=== PATIENT | female | born 1990 | race Caucasian/White ===

== ENCOUNTER 2020-06-03 13:04 | Outpatient (REF) | payer OTHER, SELFPAY ==
[2020-06-04 11:36] LABS: BV Int Neg Control Negative (Negative); BV Int Pos Control Positive (Positive)
[2020-06-04 12:36] LABS: CT PCR NOT DETECTED (Not Detect.); NG PCR NOT DETECTED (Not Detect.)
== END 2020-06-03 13:05 | disposition home or self-care (01) ==
LOC: HO.LNP 13:04
PROVIDERS: PCP Internal Medicine; Visit Provider Obstetrics & Gynecology
DX: Z11.3 Encounter for screening for infections with a predominantly sexual mode of transmission (principal); N76.0 Acute vaginitis; B96.89 Other specified bacterial agents as the cause of diseases classified elsewhere
CPT/HCPCS: 87480; 87491; 87510; 87591; 87660; 99212

== ENCOUNTER 2020-09-29 14:10 | Outpatient (REF) | payer OTHER, SELFPAY | END 2020-09-29 14:11 | disposition home or self-care (01) | LOC: HO.LNP 14:10 | PROVIDERS: Visit Provider Hospitalist | DX: R30.0 Dysuria (principal) | CPT/HCPCS: 87086 ==

== ENCOUNTER → 2020-10-15 11:54 | Outpatient (BNVA) | payer OTHER, SELFPAY | PROVIDERS: Visit Provider Obstetrics & Gynecology ==

== ENCOUNTER 2020-10-30 09:50 | Outpatient (REF) | payer OTHER, SELFPAY ==
[2020-10-30 16:44] LABS: CT PCR NOT DETECTED (Not Detect.); NG PCR NOT DETECTED (Not Detect.)
[2020-10-31 08:15] LABS: Syphilis Screen Nonreactive (Nonreactive)
[2020-10-31 08:47] LABS: BV Int Neg Control Negative (Negative); BV Int Pos Control Positive (Positive)
[2020-10-31 09:01] LABS: HBc Num1 0.08 S/CO (0.00-0.79); HIV AB/AG Nonreactive (Nonreactive); HIV Num 1 0.11 S/CO (0.00-0.99); Hepatitis B Core Antibody Nonreactive (Nonreactive); ~HepC Num1 0.08 S/CO (0.00-0.79); ~Hepatitis C Antibody Nonreactive (Nonreactive)
== END 2020-10-30 09:51 | disposition home or self-care (01) ==
LOC: HO.LAB 09:50
PROVIDERS: Visit Provider Advanced Practice Midwife
DX: Z01.84 Encounter for antibody response examination (principal); Z11.4 Encounter for screening for human immunodeficiency virus [HIV]; Z11.3 Encounter for screening for infections with a predominantly sexual mode of transmission; Z11.59 Encounter for screening for other viral diseases; R10.2 Pelvic and perineal pain; N89.8 Other specified noninflammatory disorders of vagina; N39.0 Urinary tract infection, site not specified; R82.90 Unspecified abnormal findings in urine; Z20.2 Contact with and (suspected) exposure to infections with a predominantly sexual mode of transmission
CPT/HCPCS: 36415; 86704; 86780; 86803; 87086; 87088; 87186; 87389; 87480; 87491; 87510; 87591; 87660; 99212

== ENCOUNTER 2020-12-17 09:10 | Outpatient (REF) | payer OTHER, SELFPAY ==
[2020-12-20 18:05] LABS: HPV 16 RNA NOT DETECTED (NOT DETECTED); HPV mRNA E6/E7 rflx Detected (Not Detected)
== END 2020-12-17 09:11 | disposition home or self-care (01) ==
LOC: HO.LAB 09:10
PROVIDERS: PCP Internal Medicine; Visit Provider Advanced Practice Midwife
DX: Z01.419 Encounter for gynecological examination (general) (routine) without abnormal findings (principal); R35.0 Frequency of micturition; Z11.51 Encounter for screening for human papillomavirus (HPV)
CPT/HCPCS: 81003; 87086; 87624; 87625; 88142

== ENCOUNTER 2021-03-02 12:08 | Outpatient (REF) | payer OTHER, SELFPAY ==
[2021-03-02 13:45] LABS: Binax Internal Control QC Valid; Binax Lot number: 9864; Binax Now Covid-19 Ag Positive (Negative)
== END 2021-03-02 12:09 | disposition home or self-care (01) ==
LOC: HO.LAB 12:08
PROVIDERS: Visit Provider Internal Medicine
DX: Z20.822 Contact with and (suspected) exposure to COVID-19 (principal)
CPT/HCPCS: 36415; C9803

== ENCOUNTER → 2021-07-29 13:56 | Outpatient (BNVA) | payer OTHER, SELFPAY | PROVIDERS: PCP Internal Medicine; Visit Provider Advanced Practice Midwife | DX: Z31.69 Encounter for other general counseling and advice on procreation (principal) | CPT/HCPCS: 81025; 99212 ==

== ENCOUNTER 2021-09-14 13:34 | Outpatient (REF) | payer OTHER, SELFPAY ==
[2021-09-14 16:34] LABS: MANUAL DIFF FLAG NO
[2021-09-14 16:38] LABS: Basophils Percent Auto 0.3 % (0-2); Eosinophils Absolute Auto 0.1 X10*3/uL (0.0-0.4); Eosinophils Percent Auto 0.6 % (0-4); Hematocrit 40.8 % (37.0-47.0); Hemoglobin 13.6 g/dl (12.0-16.0); Imm Gran Abs Auto 0.03 X10*3/uL (0.00-0.03); Imm Gran Pct Auto 0.3 % (0.0-0.4); Lymphocytes Percent Auto 33.4 % (20-40); Mean Corpuscular HGB Conc 33.3 g/dl (31.0-35.0); Mean Corpuscular Volume 84.1 fL (80.0-98.0); Mean Platelet Volume 9.9 fL (9.4-12.3); Monocytes Absolute Auto 0.4 X10*3/uL (0.1-1.2); Monocytes Percent Auto 4.9 % (2-11); Neutrophils Absolute Auto 5.5 x10*3/uL (2.0-8.3); Neutrophils Percent Auto 60.5 % (45-73); Platelet Count 322 X10*3/uL (160-400); Red Blood Count 4.85 X10*6/uL (4.20-5.50); Red Cell Distribution Width 12.8 % (11.0-16.0)
[2021-09-14 16:47] LABS: Anion Gap 10 (12-20); Blood Urea Nitrogen 10 mg/dL (9-16); Calcium 9.2 mg/dL (8.4-10.2); Carbon Dioxide 29 mmol/L (22-29); Chloride 103 mmol/L (96-108); Estimated Glomerular Filt Rate > 60; Glucose Random 88 mg/dL (60-115); Potassium 3.9 mmol/L (3.3-5.1); Sodium 138 mmol/L (135-145)
== END 2021-09-14 13:35 | disposition home or self-care (01) ==
LOC: HO.HMGCLDS 13:34
PROVIDERS: PCP Internal Medicine; Visit Provider Internal Medicine
DX: Z01.818 Encounter for other preprocedural examination (principal); M20.42 Other hammer toe(s) (acquired), left foot; B35.1 Tinea unguium; M20.41 Other hammer toe(s) (acquired), right foot
CPT/HCPCS: 36415; 80048; 85025

== ENCOUNTER 2021-12-23 10:18 | Outpatient (REF) | payer OTHER, SELFPAY ==
[2021-12-23 13:50] LABS: CT PCR NOT DETECTED (Not Detect.); NG PCR NOT DETECTED (Not Detect.)
[2021-12-24 12:14] LABS: BV Int Neg Control Negative (Negative); BV Int Pos Control Positive (Positive)
[2021-12-29 08:52] LABS: HPV 16 RNA NOT DETECTED (NOT DETECTED); HPV mRNA E6/E7 rflx Detected (Not Detected)
== END 2021-12-23 10:19 | disposition home or self-care (01) ==
LOC: HO.LNP 10:18
PROVIDERS: Visit Provider Advanced Practice Midwife
DX: Z01.419 Encounter for gynecological examination (general) (routine) without abnormal findings (principal); Z11.51 Encounter for screening for human papillomavirus (HPV); N94.6 Dysmenorrhea, unspecified; Z20.2 Contact with and (suspected) exposure to infections with a predominantly sexual mode of transmission
CPT/HCPCS: 87480; 87491; 87510; 87591; 87624; 87625; 87660; 88142

== ENCOUNTER 2022-01-26 14:30 | Outpatient (REF) | payer OTHER, SELFPAY | END 2022-01-26 14:31 | disposition home or self-care (01) | LOC: HO.LNP 14:30 | PROVIDERS: PCP Internal Medicine; Visit Provider Obstetrics & Gynecology | DX: A63.0 Anogenital (venereal) warts (principal); B97.7 Papillomavirus as the cause of diseases classified elsewhere | CPT/HCPCS: 57454; 88305 ==

== ENCOUNTER → 2022-02-16 13:02 | Outpatient (BNVA) | payer OTHER, SELFPAY | PROVIDERS: PCP Internal Medicine; Visit Provider Obstetrics & Gynecology | DX: Z71.2 Person consulting for explanation of examination or test findings (principal) | CPT/HCPCS: 99212 ==

== ENCOUNTER 2022-05-28 09:43 | Outpatient (REF) | payer OTHER, SELFPAY ==
[2022-05-28 12:48] LABS: Cholesterol 163 mg/dL; Glucose Fasting 91 mg/dL (60-99); HDL Cholesterol 44 mg/dL; LDL Cholesterol Calculated 109 mg/dl; TSH reflex Free T4 0.38 uIU/mL (0.32-4.0); Triglycerides 53 mg/dL; Vitamin D 25-OH Total 19.1 ng/mL (>30)
== END 2022-05-28 09:44 | disposition home or self-care (01) ==
LOC: HO.HMGCLDS 09:43
PROVIDERS: PCP Internal Medicine; Visit Provider Internal Medicine
DX: Z00.01 Encounter for general adult medical examination with abnormal findings (principal); E66.9 Obesity, unspecified; F41.9 Anxiety disorder, unspecified
CPT/HCPCS: 36415; 80061; 82306; 82947; 84443

== ENCOUNTER 2022-06-04 12:55 | Outpatient (REF) | payer OTHER, SELFPAY ==
[2022-06-06 09:38] LABS: BV Int Neg Control Negative (Negative); BV Int Pos Control Positive (Positive)
== END 2022-06-04 12:56 | disposition home or self-care (01) ==
LOC: HO.LNP 12:55
PROVIDERS: Visit Provider Internal Medicine
DX: N76.0 Acute vaginitis (principal); B96.89 Other specified bacterial agents as the cause of diseases classified elsewhere
CPT/HCPCS: 87480; 87510; 87660

== ENCOUNTER 2022-07-16 08:47 | Outpatient (REF) | payer OTHER, SELFPAY ==
[2022-07-16 15:17] LABS: CT PCR NOT DETECTED (Not Detect.); NG PCR NOT DETECTED (Not Detect.)
[2022-07-17 12:06] LABS: BV Int Neg Control Negative (Negative); BV Int Pos Control Positive (Positive)
== END 2022-07-16 08:48 | disposition home or self-care (01) ==
LOC: HO.LNP 08:47
PROVIDERS: PCP Internal Medicine; Visit Provider Advanced Practice Midwife
DX: N76.0 Acute vaginitis (principal); B96.89 Other specified bacterial agents as the cause of diseases classified elsewhere; Z20.2 Contact with and (suspected) exposure to infections with a predominantly sexual mode of transmission; S30.814A Abrasion of vagina and vulva, initial encounter
CPT/HCPCS: 0353U; 87480; 87510; 87660; 99212

== ENCOUNTER 2022-11-29 09:27 | Outpatient (AMB) | payer OTHER, SELFPAY ==
[2022-11-29 10:35] VITALS: BP 130/80; PULSE 85; TEMP 36.7; O2SAT 98; BMI 30.7
--- NOTE | 2022-11-29 10:35 | MHC.OFFWIV ---
Intake Vital Signs 11/29/22 10:35 Height 5 ft 6 in Weight 86.183 kg BMI 30.7 BP 130/80 Blood Pressure Location Rt brachial Position Sitting Pulse 85 Pulse Source Pulse Oximeter Temp 98.0 F Temp Source Temporal Artery Scan Pulse Oximetry (%) 98 Intake Visit Reasons: EP Severe lower back pain [phone] Intake Note: pt is here for c.o severe lower back pain, one week late on period, requesting blood test Patient Tobacco Use Status: Never used Tobacco Allergies No Known Allergies Allergy (Verified 11/29/22 10:36) Do you need a note to return to daycare/school/sports/work: Yes HPI EP Severe lower back pain [phone] HPI Details Patient presents with low back pain that is worse at night. She notes similar symptoms in the past secondary to scoliosis and increased activity. She denies falls or acute trauma acute incident starting pain. She also notes her LMP was 10/02/2022. She has previously had very regular periods every 28 days. She notes pitt air test was negative. She denies pelvic pain, discharge, rash lesions or bleeding. [facility] Medical History Abnormal Pap smear of cervix Anxiety disorder Bacterial vaginosis Hammertoes of both feet HPV in female Obesity (BMI 30-39.9) Onychomycosis Vaginal discharge Surgical History History of section History of tonsillectomy Family History Father Unknown family medical history Mother No problems noted. Maternal Grandmother Glaucoma Maternal Grandfather CVD (cardiovascular disease) Myocardial infarction Paternal Grandfather Unknown family medical history Paternal Grandmother Unknown family medical history Maternal Aunt Diabetes mellitus Brother No problems noted. Sister No problems noted. Daughter No problems noted. Daughter No problems noted. Maternal Uncle Substance use disorder Maternal Uncle Substance use disorder Maternal Uncle Substance use disorder Social History Housing: Apartment Alcohol intake: never Patient Tobacco Use Status: Never used Tobacco e-Cigarette/Vaping Use: Never Used Current occupational status: employed Sexual orientation: Straight/Heterosexual Gender identity: Female Cognitive needs: No Hearing needs: No Vision needs: No Female Reproductive History Menstrual Age of Menarche: 9 Review of Systems Const Reports as per HPI and Reports no additional complaints Card Reports as per HPI and Reports no additional complaints Resp Reports as per HPI and Reports no additional complaints GI Reports as per HPI and Reports no additional complaints Reports as per HPI Musc Reports no additional complaints and Reports as per HPI Skin/Breast Denies lesions Physical Exam Vital Signs: Last Vital Signs Temp 98.0 F 11/29/22 10:35 Pulse 85 11/29/22 10:35 BP 130/80 11/29/22 10:35 Pulse Ox 98 11/29/22 10:35 BMI result Body Mass Index 30.7 Const General: cooperative, comfortable and no acute distress Orientation/consciousness: patient oriented x3 Resp Effort & Inspection: normal respiratory effort Auscultation: clear to auscultation bilaterally Cardio Rate: regular rate Rhythm: regular rhythm Heart sounds: S1 normal heart sound present and S2 normal heart sound present General: Yes no CVA tenderness Back/Spine/Pelvis Back: no CVA tenderness, No erythema, No warmth, No sacral edema and No ecchymosis Thoracic/Lumbar Spine: thoracic and lumbar spine normal to inspection, thoraco-lumbar ROM normal and thoraco-lumbar spasm bilaterally (Mild) Neuro Other: Negative straight leg raise bilaterally normal gait General: patient oriented x3 Results AMB Urinalysis, Automated UA Leukoctes 0 Eyad/uL Last Edit by Sriram Quintana CMA on 11/29/22 10:58 UA Nitrite Negative Last Edit by Sriram Quintana CMA on 11/29/22 10:58 UA Urobilinogen 0.2 mg/dL Last Edit by Sriram Quintana CMA on 11/29/22 10:58 UA Protein 0 mg/dL Last Edit by Sriram Quintana CMA on 11/29/22 10:58 UA pH 6.0 Last Edit by Sriram Quintana CMA on 11/29/22 10:58 UA Blood 10 Chris/uL Last Edit by Sriram Quintana CMA on 11/29/22 10:58 UA Specific [place] 1.025 Last Edit by Sriram Quintana CMA on 11/29/22 10:58 UA Ketone Negative Last Edit by Sriram Quintana CMA on 11/29/22 10:58 UA Bilirubin 0 mg/dL Last Edit by Sriram Quintana CMA on 11/29/22 10:58 UA Glucose 0 mg/dL Last Edit by Sriram Quintana CMA on 11/29/22 10:58 AMB Test Urine AMB Test Urine Negative Last Edit by Sriram Quintana CMA on 11/29/22 10:59 Assessment & Plan Assessment & Plan (1) Lumbar paraspinal muscle spasm: Code(s): M62.830 - Muscle spasm of back Plan: Treat with q.h.s. Flexeril and self rehab exercises and self-care with heat or ice. Return to clinic if symptoms persist may consider imaging or physical therapy as needed. (2) Amenorrhea: Code(s): N91.2 - Amenorrhea, unspecified Plan: Urine hCG negative in office today. 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 Orders: Orders HCG Quantitative Today M62.830 - Muscle spasm of back, N91.2 - Amenorrhea, unspecified TSH reflex Free T4 Today N91.2 - Amenorrhea, unspecified AMB Urinalysis Automated Today Z13.9 - Encounter for screening, unspecified AMB HCG Urine Test Today Z13.9 - Encounter for screening, unspecified Medications: New cyclobenzaprine 10 mg PO BEDTIME PRN 20 tabs 0RF muscle spasm Coding Level of Care Code Est Pt Level 3 (78669) Diagnoses Lumbar paraspinal muscle spasm M62.830 Amenorrhea N91.2
== END 2022-11-29 10:59 | disposition home or self-care (01) ==
PROVIDERS: PCP Internal Medicine; Visit Provider Physician Assistant
DX: M62.830 Muscle spasm of back (principal); N91.2 Amenorrhea, unspecified; Z13.9 Encounter for screening, unspecified
CPT/HCPCS: 81003; 81025; 99213

== ENCOUNTER 2022-11-29 11:01 | Outpatient (REF) | payer OTHER, SELFPAY ==
[2022-11-29 14:26] LABS: HCG Quantitative < 2 mIU/mL; TSH reflex Free T4 0.45 uIU/mL (0.32-4.0)
== END 2022-11-29 11:02 | disposition home or self-care (01) ==
LOC: HO.HMGCLDS 11:01
PROVIDERS: PCP Internal Medicine; Visit Provider Physician Assistant
DX: N91.2 Amenorrhea, unspecified (principal); M62.830 Muscle spasm of back
CPT/HCPCS: 36415; 84443; 84702

== ENCOUNTER 2022-12-23 10:40 | Outpatient (AMB) | payer OTHER, SELFPAY ==
--- NOTE | 2022-12-23 10:47 | A.OFFVIS_ITS ---
Intake Vital Signs 12/23/22 10:51 Height 5 ft 6 in Weight 192 lb 2 oz BMI 31.0 BP 112/78 Blood Pressure Location Lt brachial Position Sitting Pulse 89 Pulse Source Pulse Oximeter Temp 97.1 F Temp Source Temporal Artery Scan Pulse Oximetry (%) 99 Oxygen Delivery Method Room Air Intake Visit Reasons: EP Migraine, Dizzy, Nausea Intake Note: Pt presents to the office today for c/o migraines,dizziness, and nausea. Pt states these symptoms started months ago but has gotten worse within the past two weeks. Pt states she did go to the hospital for this about two weeks ago at [facility]. Pt states the doctor told her it was tension headaches. Pt states that no OTC medications are helping. Allergies No Known Allergies Allergy (Verified 12/23/22 10:47) HPI HPI Comments History of Present Illness Details The patient presents to urgent care for evaluation of ongoing headaches. She reports that she has had foggy headed sensation. She states that she has been dealing with headaches for many months. Over the past month it has increased in intensity. She does admit to increased stress with 2 jobs and going to school. She went to the ER about 2 weeks ago and was told it was tension headache and given muscle relaxer. She has not been using this as it was not helpful. She did take some of her mother's migraine medication and found to be helpful though she does not know which medication it was. In addition, patient reports that she has 2 brothers who from brain tumors and this is making her very concerned about her current symptoms. She reports they are tumors started with symptoms similar to hers. No visual changes. No nausea vomiting. [facility] Medical History (Updated 12/23/22 @ 11:29 by Radha Arnett DO) Persistent headaches Vaginal discharge Anxiety disorder HPV in female Abnormal Pap smear of cervix Onychomycosis Hammertoes of both feet Obesity (BMI 30-39.9) Bacterial vaginosis Surgical History History of section History of tonsillectomy Family History Father Unknown family medical history Mother No problems noted. Maternal Grandmother Glaucoma Maternal Grandfather CVD (cardiovascular disease) Myocardial infarction Paternal Grandfather Unknown family medical history Paternal Grandmother Unknown family medical history Maternal Aunt Diabetes mellitus Brother No problems noted. Sister No problems noted. Daughter No problems noted. Daughter No problems noted. Maternal Uncle Substance use disorder Maternal Uncle Substance use disorder Maternal Uncle Substance use disorder Social History (Updated 12/23/22 @ 10:53 by Meme Mancia MA) Housing: Apartment Alcohol intake: never Patient Tobacco Use Status: Never used Tobacco e-Cigarette/Vaping Use: Never Used Substance Use Type: Marijuana Current occupational status: employed Sexual orientation: Straight/Heterosexual Gender identity: Female Cognitive needs: No Hearing needs: No Vision needs: No Female Reproductive History Menstrual Age of Menarche: 9 Physical Exam Vital Signs: Last Vital Signs Temp 97.1 F 12/23/22 10:51 Pulse 89 12/23/22 10:51 BP 112/78 12/23/22 10:51 Pulse Ox 99 12/23/22 10:51 Oxygen Delivery Method Room Air 12/23/22 10:51 BMI result Body Mass Index 31.0 Const General: healthy appearing and no acute distress Orientation/consciousness: patient oriented x3 Eyes Corneas: corneas normal Pupils: Equal, round and reactive pupils present Chest Chest palpation & inspection: no tenderness Resp Effort & Inspection: normal respiratory effort and able to speak in complete sentences GI Palpation (GI): nontender Neuro General: patient oriented x3 Cranial nerves: Yes Equal, round and reactive pupils present Psych Appearance: grossly normal Attitude: cooperative Assessment & Plan Assessment & Plan (1) Persistent headaches: Code(s): R51.9 - Headache, unspecified Plan The patient was advised to use ibuprofen as needed for headache. Will order CT scan to further evaluate and rule out intracranial pathology. Patient was reassured and will follow-up with her PCP. Orders: Orders CT head/brain wo/w IV con Today R51.9 - Headache, unspecified Coding Level of Care Code Est Pt Level 3 (23206) Diagnoses Persistent headaches R51.9
[2022-12-23 10:51] VITALS: BP 112/78; PULSE 89; TEMP 36.2; O2SAT 99; BMI 31.0
== END 2022-12-23 11:39 | disposition home or self-care (01) ==
PROVIDERS: PCP Internal Medicine; Visit Provider Emergency Medicine
DX: R51.9 Headache, unspecified (principal)
CPT/HCPCS: 99213

== ENCOUNTER 2023-02-01 07:48 | Outpatient (REF) | payer OTHER, SELFPAY ==
--- NOTE | ~2023-02-01 | CT_ITS ---
EXAMINATION: CT HEAD WITH/WITHOUT CONTRAST CLINICAL INFORMATION: Headache COMPARISON: None available. TECHNIQUE: Contiguous axial imaging was performed from the skull base to vertex before and after the administration of 85 mL of Omnipaque [address] examination was performed using dose optimization techniques as appropriate, variously including the following: *Automated exposure control *Adjustment of mA and/or kV according to patient size (this includes techniques or standardized protocols for targeted exams where dose is matched to indication/reason for exam; i.e. extremities or head) *Use of iterative reconstruction technique DLP: 1448 mGy-cm FINDINGS: No acute osseous or soft tissue abnormality. The mastoid air cells and visualized portions of the paranasal sinuses are well aerated. No abnormal intracranial enhancement There is no evidence of acute intracranial hemorrhage or territorial infarction. No abnormal mass effect or midline shift is seen. Varghese to white matter differentiation is well preserved. No extra-axial fluid collections are identified. No hydrocephalus. No significant volume loss. There is no abnormal attenuation within the brain parenchyma. CT/CT head/brain wo/w IV con IMPRESSION: Normal exam
[2023-02-01] MEDS: iohexoL 350 MG/ML 100 ML INFUS..BTL IV (08:25)
== END 2023-02-01 07:49 | disposition home or self-care (01) ==
LOC: HO.CT 07:48
PROVIDERS: PCP Internal Medicine; Visit Provider Emergency Medicine
DX: R51.9 Headache, unspecified (principal)
CPT/HCPCS: 70470; Q9967

== ENCOUNTER 2023-02-14 11:44 | Outpatient (REF) | payer OTHER, SELFPAY ==
[2023-02-15 06:04] LABS: CT PCR NOT DETECTED (Not Detect.); NG PCR NOT DETECTED (Not Detect.)
[2023-02-19 06:19] LABS: HPV 16 RNA NOT DETECTED (NOT DETECTED); HPV mRNA E6/E7 rflx Detected (Not Detected)
== END 2023-02-14 11:45 | disposition home or self-care (01) ==
LOC: HO.LNP 11:44
PROVIDERS: PCP Internal Medicine; Visit Provider Obstetrics & Gynecology
DX: Z01.419 Encounter for gynecological examination (general) (routine) without abnormal findings (principal); N92.6 Irregular menstruation, unspecified; N93.9 Abnormal uterine and vaginal bleeding, unspecified
CPT/HCPCS: 0353U; 81025; 87624; 87625; 88142; 99395

== ENCOUNTER 2023-02-14 11:44 | Outpatient (AMB) | payer OTHER, SELFPAY ==
[2023-02-14 11:48] VITALS: BP 120/74; BMI 31.0
--- NOTE | 2023-02-14 11:48 | A.OFFVIS_ITS ---
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 Complaining of irregular menstrual cycle associated with passage of blood clots and pelvic cramping last 4 months Last Pap/HPV was in 12/19 was negative/HPV positive, colpo biopsy/ECC were negative. Co testing in 12/18 was negative/HPV positive [facility] Medical History Persistent headaches Vaginal discharge Anxiety disorder HPV in female Onychomycosis Hammertoes of both feet Obesity (BMI 30-39.9) Bacterial vaginosis Surgical History History of section History of tonsillectomy Family History Father Unknown family medical history Mother No problems noted. Maternal Grandmother Glaucoma Maternal Grandfather CVD (cardiovascular disease) Myocardial infarction Paternal Grandfather Unknown family medical history Paternal Grandmother Unknown family medical history Maternal Aunt Diabetes mellitus Brother No problems noted. Sister No problems noted. Daughter No problems noted. Daughter No problems noted. Maternal Uncle Substance use disorder Maternal Uncle Substance use disorder Maternal Uncle Substance use disorder Social History Housing: Apartment Alcohol intake: never Patient Tobacco Use Status: Never used Tobacco e-Cigarette/Vaping Use: Never Used Substance Use Type: Marijuana Current occupational status: employed Sexual orientation: Straight/Heterosexual Gender identity: Female Cognitive needs: No Hearing needs: No Vision needs: No Female Reproductive History Menstrual Age of Menarche: 9 control method: none Total pregnancies: 4 Full term: 2 Number of Living Children: 2 Ab induced: 2 Date of last pap smear: 12/23/21 History of abnormal pap smear: Yes (HPV +) Review of Systems Const All systems reviewed & are unremarkable except as noted in HPI and below Card Reports as per HPI Resp Reports as per HPI GI Reports as per HPI and Reports no additional complaints Reports as per HPI Physical Exam Vital Signs: Last Vital Signs BP 120/74 02/14/23 11:48 BMI result Body Mass Index 31.0 Const General: cooperative, healthy appearing and comfortable Chest Chest palpation & inspection: normal inspection of the chest and normal palpation of entire chest wall Breast/axilla inspection: normal inspection of the breasts and normal inspection of the axillae Breast/axilla palpation: normal palpation of the breasts, normal palpation of the axillae and no axillary lymphadenopathy Resp Effort & Inspection: normal respiratory effort Auscultation: clear to auscultation bilaterally Percussion: percussion normal Cardio Palpation: normal PMI Rate: regular rate Rhythm: regular rhythm Heart sounds: no murmurs and no rubs Peripheral pulses: Peripheral pulses 2+ throughout GI Inspection: Yes normal to inspection Palpation (GI): Soft to palpation, nontender, no guarding, not rigid and No hepatosplenomegaly present Percussion: Yes normal to percussion Auscultation: normal bowel sounds Rectal Exam - Female: deferred General: Yes bladder normal to palpation External Female Exam: No lesion Speculum Exam - Vagina: normal appearance of the vagina, normal palpation, normal vaginal discharge and not erythematous Speculum Exam - Cervix: normal appearance of the cervix and normal palpation Bimanual exam- vagina & uterus: normal bimanual exam, normal palpation, uterine size normal, bladder normal to palpation, consistency normal and normal palpation Bimanual Exam- Adnexa, other: normal adnexae, no masses and no tenderness Results AMB Test Urine AMB Test Urine Negative Last Edit by BELL Singleton on 02/14/23 11:58 Assessment & Plan Assessment & Plan (1) Well woman exam: Comment: 12/19 Pap negative/HPV positive, colpo/biopsy/ECC negative Code(s): Z01.419 - Encounter for gynecological examination (general) (routine) without abnormal findings Plan: Cotesting done. Counseled the patient about the recommended dietary allowance of 1000 mg of Calcium & 600 IU of vitamin D. The patient was instructed to perform monthly self-breast exams and to schedule an annual exam in a year; All questions answered and the patient verbalized understanding. Instructed the patient to schedule annual exam in a year (2) Abnormal uterine bleeding: Code(s): N93.9 - Abnormal uterine and vaginal bleeding, unspecified Plan: Co testing done, GC and chlamydia taken CBC, TSH, prolactin, HCG, and pelvic ultrasound ordered. Discussed with the patient the different causes of abnormal bleeding including thyroid disorders, uterine and ovarian pathology, endometrial hyperplasia, carcinoma and other potential causes. Discussed with the patient the work up including CBC (to r/o anemia), prolactin, TSH, pelvic Ultrasound, endometrial biopsy to r/o endometrial pathology. All questions answered and the patient verbalized understanding. Instructed the patient to schedule an appointment for an endometrial biopsy in 2 weeks. Orders: Orders Complete Blood Count no Diff Today N93.9 - Abnormal uterine and vaginal bleeding, unspecified TSH reflex Free T4 Today N93.9 - Abnormal uterine and vaginal bleeding, unspecified AMB HCG Urine Test Today Z32.02 - Encounter for test, result negative Prolactin Today N93.9 - Abnormal uterine and vaginal bleeding, unspecified HCG Quantitative Today N93.9 - Abnormal uterine and vaginal bleeding, unspecified US pelvic and transvaginal Today N93.9 - Abnormal uterine and vaginal bleeding, unspecified Coding Level of Care Code Est Pt Prev Care 18-39y(31810) Diagnoses Well woman exam Z01.419 Abnormal uterine bleeding N93.9
== END 2023-02-14 12:06 | disposition home or self-care (01) ==
PROVIDERS: PCP Internal Medicine; Visit Provider Obstetrics & Gynecology
DX: Z01.419 Encounter for gynecological examination (general) (routine) without abnormal findings (principal); N93.9 Abnormal uterine and vaginal bleeding, unspecified; Z32.02 Encounter for pregnancy test, result negative
CPT/HCPCS: 99395

== ENCOUNTER 2023-03-16 11:30 | Outpatient (REF) | payer OTHER, SELFPAY ==
--- NOTE | ~2023-03-16 | US_ITS ---
EXAMINATION: US PELVIS CLINICAL INFORMATION: Abnormal uterine vaginal bleeding; the last menstrual period was on 03/04/2023. COMPARISON: Pelvic ultrasound dated 02/13/2019. TECHNIQUE: Ultrasound of the pelvis is performed using both transabdominal and transvaginal transducers along with Doppler. Transvaginal imaging is performed due to inadequate visualization transabdominally. FINDINGS: Uterus: The uterus is anteverted and measures 8.6 x 4.8 x 5.2 cm. The uterus has an arcuate appearance. 2. Cysts are seen within the cervix. The double wall endometrial thickness is 6 mm. The uterus is smooth in contour and has normal myometrial echogenicity. No visible fibroid. Adnexa: Both ovaries are visualized.There is normal color flow to the adnexa. There is no ovarian torsion. There is no pelvic ascites or fluid collection. Right ovary measures 3.5 x 1.9 x 2.2 cm, volume 7.7 mL. A 7 mm hypoechoic probable hemorrhagic cyst is seen, of doubtful clinical significance. Left ovary measures 0.9 x 1.3 x 0.9 cm, volume 0.6. US/US pelvic and transvaginal IMPRESSION: 1. Again, the uterus shows an arcuate appearance. 2. Nabothian cysts are seen within the cervix. 3. A 7 mm hypoechoic probable hemorrhagic cyst is seen, which requires no imaging follow-up.
== END 2023-03-16 11:31 | disposition home or self-care (01) ==
LOC: HO.US 11:30
PROVIDERS: PCP Internal Medicine; Visit Provider Obstetrics & Gynecology
DX: N93.9 Abnormal uterine and vaginal bleeding, unspecified (principal)
CPT/HCPCS: 76830; 76856

== ENCOUNTER 2023-04-12 09:48 | Outpatient (AMB) | payer OTHER, SELFPAY ==
--- NOTE | 2023-04-12 09:51 | MHC.OFFVIS ---
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 Required: No Information Interpreted: non-clinical & clinical Equine Vet: Equine Vet Present (Cheri [facility]UU) Accompanied by: Self / Same As Patient Allergies No Known Allergies Allergy (Verified 04/12/23 10:04) Is last menstrual period known: Yes Last menstrual period: 04/01/23 HPI HPI Comments History of Present Illness Details Presenting for colposcopy/biopsy/ECC for ascus/HPV positive and EMB for AUB complaining of vaginal discharge associated with vaginal odor PFSH Medical History Persistent headaches Vaginal discharge Anxiety disorder HPV in female Onychomycosis Hammertoes of both feet Obesity (BMI 30-39.9) Bacterial vaginosis Surgical History History of section History of tonsillectomy Family History Father Unknown family medical history Mother No problems noted. Maternal Grandmother Glaucoma Maternal Grandfather CVD (cardiovascular disease) Myocardial infarction Paternal Grandfather Unknown family medical history Paternal Grandmother Unknown family medical history Maternal Aunt Diabetes mellitus Brother No problems noted. Sister No problems noted. Daughter No problems noted. Daughter No problems noted. Maternal Uncle Substance use disorder Maternal Uncle Substance use disorder Maternal Uncle Substance use disorder Social History Housing: Apartment Alcohol intake: never Patient Tobacco Use Status: Never used Tobacco e-Cigarette/Vaping Use: Never Used Substance Use Type: Marijuana Current occupational status: employed Sexual orientation: Straight/Heterosexual Gender identity: Female Cognitive needs: No Hearing needs: No Vision needs: No Female Reproductive History Menstrual Age of Menarche: 9 Date of last menstrual period: 04/01/23 Review of Systems Const All systems reviewed & are unremarkable except as noted in HPI and below Reports as per HPI and Reports no additional complaints GI Reports no additional complaints Reports no additional complaints Physical Exam General: Yes no CVA tenderness External Female Exam: normal external appearance and normal appearance of the urethra Speculum Exam - Vagina: normal appearance of the vagina, normal palpation, no lesions and no masses Speculum Exam - Cervix: normal appearance of the cervix, normal palpation, no lesions, no masses and nontender Bimanual exam- vagina & uterus: normal bimanual exam, normal palpation, uterine size normal, normal palpation, uterine shape normal, No Cervical tenderness present and non-tender Bimanual Exam- Adnexa, other: normal adnexae Back/Spine/Pelvis Back: no CVA tenderness Results AMB Test Urine AMB Test Urine Negative Last Edit by Cheri Vragas CMA on 04/12/23 10:03 Assessment & Plan Assessment & Plan (1) Bacterial vaginosis: Code(s): N76.0 - Acute vaginitis; B96.89 - Other specified bacterial agents as the cause of diseases classified elsewhere Plan: GC and chlamydia cultures with BV panel taken. Per CDC recommendation, will screen for STI, HepBs Ag, HIV, RPR, Hep C Ab ordered. Will treat with Flagyl 500 mg p.o. b.i.d. x 7 days, Instructions given to the patient to refrain from sexual activity or to use condoms consistently and correctly during the BV treatment regimen, not to douch, it might increase the risk for relapse, and to call if symptoms persist or recur. Will reschedule EMB/colpo/biopsy/ECC because of increased risk of infection with BV. Instructions given to patient to schedule colpo/biopsy/ECC was EMB 10 days. All questions answered, the patient verbalized understanding Orders: Orders AMB HCG Urine Test Today Z32.02 - Encounter for test, result negative Hepatitis C Antibody Today B96.89 - Other specified bacterial agents as the cause of diseases classified elsewhere, N76.0 - Acute vaginitis HIV Ab/Ag Today B96.89 - Other specified bacterial agents as the cause of diseases classified elsewhere, N76.0 - Acute vaginitis Hepatitis B Surface Antigen Today B96.89 - Other specified bacterial agents as the cause of diseases classified elsewhere, N76.0 - Acute vaginitis Syphilis Screen Today B96.89 - Other specified bacterial agents as the cause of diseases classified elsewhere, N76.0 - Acute vaginitis Medications: New metronidazole 500 mg PO BID 14 tabs 0RF 7 days Coding Level of Care Code Est Pt Level 3 (19205) Diagnoses Bacterial vaginosis N76.0; B96.89
[2023-04-12 10:03] VITALS: BP 110/70
== END 2023-04-12 12:04 | disposition home or self-care (01) ==
LOC: HO.HWS 09:48
PROVIDERS: PCP Internal Medicine; Visit Provider Obstetrics & Gynecology
DX: N76.0 Acute vaginitis (principal); B96.89 Other specified bacterial agents as the cause of diseases classified elsewhere; Z32.02 Encounter for pregnancy test, result negative
CPT/HCPCS: 99213

== ENCOUNTER 2023-04-12 09:48 | Outpatient (REF) | payer OTHER, SELFPAY ==
[2023-04-12 13:12] LABS: CT PCR NOT DETECTED (Not Detect.); NG PCR NOT DETECTED (Not Detect.)
[2023-04-13 10:39] LABS: BV Int Neg Control Negative (Negative); BV Int Pos Control Positive (Positive)
== END 2023-04-12 09:49 | disposition home or self-care (01) ==
LOC: HO.LNP 09:48
PROVIDERS: PCP Internal Medicine; Visit Provider Obstetrics & Gynecology
DX: N76.0 Acute vaginitis (principal); B96.89 Other specified bacterial agents as the cause of diseases classified elsewhere
CPT/HCPCS: 0353U; 81025; 87480; 87510; 87660; 99212

== ENCOUNTER 2023-04-12 10:37 | Outpatient (AMB) | payer OTHER, SELFPAY ==
--- NOTE | 2023-04-12 10:38 | MHC.OFFWIV ---
Intake Vital Signs 04/12/23 10:40 Height 5 ft 6 in Weight 199 lb 4 oz BMI 32.2 BP 118/78 Blood Pressure Location Lt brachial Position Sitting Pulse 73 Pulse Source Pulse Oximeter Temp 97.1 F Temp Source Temporal Artery Scan Pulse Oximetry (%) 99 Oxygen Delivery Method Room Air Intake Visit Reasons: EP fever ear ache cold sore [id number] Intake Note: pt is here today for fever ear ache cold sore 2 days ago Patient Tobacco Use Status: Never used Tobacco Allergies No Known Allergies Allergy (Verified 04/12/23 10:42) Medication List - Last Reconciled 04/12/23 by KALPESH Palomo fluoxetine 10 mg PO DAILY mometasone 0.1% 0 appl topical valacyclovir (Valtrex) 500 mg PO BID 7 days Do you need a note to return to daycare/school/sports/work: No HPI HPI Comments History of Present Illness Details 32-year-old female comes in today complaining of right ear discomfort and a herpetic lesion on the anterior right side of her chin. She has had a similar outbreak in the past. [facility] Medical History Persistent headaches Vaginal discharge Anxiety disorder HPV in female Onychomycosis Hammertoes of both feet Obesity (BMI 30-39.9) Bacterial vaginosis Surgical History History of section History of tonsillectomy Family History Father Unknown family medical history Mother No problems noted. Maternal Grandmother Glaucoma Maternal Grandfather CVD (cardiovascular disease) Myocardial infarction Paternal Grandfather Unknown family medical history Paternal Grandmother Unknown family medical history Maternal Aunt Diabetes mellitus Brother No problems noted. Sister No problems noted. Daughter No problems noted. Daughter No problems noted. Maternal Uncle Substance use disorder Maternal Uncle Substance use disorder Maternal Uncle Substance use disorder Social History Housing: Apartment Alcohol intake: never Patient Tobacco Use Status: Never used Tobacco e-Cigarette/Vaping Use: Never Used Substance Use Type: Marijuana Current occupational status: employed Sexual orientation: Straight/Heterosexual Gender identity: Female Cognitive needs: No Hearing needs: No Vision needs: No Female Reproductive History Menstrual Age of Menarche: 9 Review of Systems Const Reports fatigue and Reports fever(s) ENT Reports otalgia Endo Reports fatigue Physical Exam Vital Signs: Last Vital Signs Temp 97.1 F 04/12/23 10:40 Pulse 73 04/12/23 10:40 BP 118/78 04/12/23 10:40 Pulse Ox 99 04/12/23 10:40 Oxygen Delivery Method Room Air 04/12/23 10:40 BMI result Body Mass Index 32.2 Const General: healthy appearing and no acute distress HEENT Head: Yes normal to inspection, Yes normocephalic and Yes atraumatic Ears: hearing grossly normal bilaterally, external ears normal, TM's normal bilaterally, TM normal on the right, TM normal on the left and EAC's normal General nose exam: Normal external nose present Face and sinus: Yes other (multiple clustered papules on right side of chin ) Mouth: Normal oral and palatal mucosa present and lip normal Throat: Yes posterior oropharynx normal Eyes General: appearance normal, both eyes and all related structures Neck Neck: Yes lymphadenopathy (right anterior cervical ) Resp Effort & Inspection: normal respiratory effort Auscultation: clear to auscultation bilaterally Cardio Rate: regular rate Rhythm: regular rhythm Results AMB Test Urine AMB Test Urine Negative Last Edit by Cheri Vargas CMA on 04/12/23 10:03 Assessment & Plan Assessment & Plan (1) HSV (herpes simplex virus) infection: Code(s): B00.9 - Herpesviral infection, unspecified Plan The patient will take Valtrex twice a day for 7 days as she has a previous upright. Follow up with her PCP Medications: New valacyclovir (Valtrex) 500 mg PO BID 7 days 14 tabs 0RF Coding Level of Care Code Est Pt Level 3 (25132) Diagnoses HSV (herpes simplex virus) infection B00.9 Time Spent (min) 20
[2023-04-12 10:40] VITALS: BP 118/78; PULSE 73; TEMP 36.2; O2SAT 99; BMI 32.2
== END 2023-04-12 12:03 | disposition home or self-care (01) ==
PROVIDERS: PCP Internal Medicine; Visit Provider Physician Assistant Medical
DX: B00.9 Herpesviral infection, unspecified (principal)
CPT/HCPCS: 99214

== ENCOUNTER 2023-04-28 14:36 | Outpatient (REF) | payer OTHER, SELFPAY | END 2023-04-28 14:37 | disposition home or self-care (01) | LOC: HO.LNP 14:36 | PROVIDERS: PCP Internal Medicine; Visit Provider Obstetrics & Gynecology | DX: R87.610 Atypical squamous cells of undetermined significance on cytologic smear of cervix (ASC-US) (principal); R87.810 Cervical high risk human papillomavirus (HPV) DNA test positive; N93.9 Abnormal uterine and vaginal bleeding, unspecified | CPT/HCPCS: 57454; 58110; 81025; 88305; 88342; 88360 ==

== ENCOUNTER 2023-04-28 14:36 | Outpatient (AMB) | payer OTHER, SELFPAY ==
[2023-04-28 14:53] VITALS: BP 118/68; BMI 32.1
--- NOTE | 2023-04-28 14:53 | MHC.OFFVIS ---
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 Present Accompanied by: Self / Same As Patient Allergies No Known Allergies Allergy (Verified 04/28/23 14:56) Is last menstrual period known: Yes Last menstrual period: 04/03/23 Post menopausal: No Patient : No HPI HPI Comments History of Present Illness Details Presenting for colposcopy for abnormal Pap smear done in 02/19 showing ascus/HPV E6/E7 positive, HPV 16/18/40 5- and for EMB for abnormal uterine bleeding [facility] Medical History Persistent headaches Vaginal discharge Anxiety disorder HPV in female Onychomycosis Hammertoes of both feet Obesity (BMI 30-39.9) Bacterial vaginosis Surgical History History of section History of tonsillectomy Family History Father Unknown family medical history Mother No problems noted. Maternal Grandmother Glaucoma Maternal Grandfather CVD (cardiovascular disease) Myocardial infarction Paternal Grandfather Unknown family medical history Paternal Grandmother Unknown family medical history Maternal Aunt Diabetes mellitus Brother No problems noted. Sister No problems noted. Daughter No problems noted. Daughter No problems noted. Maternal Uncle Substance use disorder Maternal Uncle Substance use disorder Maternal Uncle Substance use disorder Social History Housing: Apartment Alcohol intake: never Patient Tobacco Use Status: Never used Tobacco e-Cigarette/Vaping Use: Never Used Substance Use Type: Marijuana Patient : No Current occupational status: employed Sexual orientation: Straight/Heterosexual Gender identity: Female Cognitive needs: No Hearing needs: No Vision needs: No Female Reproductive History Menstrual Age of Menarche: 9 Date of last menstrual period: 04/03/23 Review of Systems Const All systems reviewed & are unremarkable except as noted in HPI and below Reports as per HPI and Reports no additional complaints GI Reports no additional complaints Reports no additional complaints Physical Exam Vital Signs: Last Vital Signs BP 118/68 04/28/23 14:53 BMI result Body Mass Index 32.1 Office Procedures Colposcopy Before the procedure was started discussed with the patient the procedure, alternatives & all the risks associated with the procedure (bleeding, infection, injury to vagina, bladder, vessels, possible need for transfusion with all its risks) then patient signed the consent UPT done in the office & negative Pap smear = ascus/HPV positive Speculum inserted, acetic acid used Colposcopy done Transformation zone seen, acetowhite lesions identified at 4+5+6+7+12 o?clock, cervical biopsies taken from 4+5+6+7+12 o?clock, ECC done afterwards. Vaginoscopy of the upper vagina showed no evidence of any aceto-white lesions Monsel solution used for hemostasis. The patient tolerated well . At the end the patient was instructed to call if temp>100.4, abdominal pain, n/v, bleeding; The patient was given the following instructions: nothing per vagina, no intercourse or bath tub use. All questions answered the patient verbalized understanding. Instructed the patient to make an appointment in 2 weeks for follow-up This note was generated with a voice recognition program. Some errors may have been overlooked during the review of this note. Sometimes these errors may affect the content or meaning of a given sentence. 43410-Dlxgnpwzb of cervix including upper vagina with biopsy and ECC Procedure code (CPT) selection complete Endometrial Biopsy Details: The patient was counseled regarding the indication and benefits of endometrial sampling to rule out endometrial pathology including not limited to endometrial hyperplasia or endometrial cancer and others; The alternatives (Either do nothing vs. hysteroscopy D&C) & the risks were discussed with the patient including but not limited: pain, uterine perforation, bleeding, infection, possible injury to bladder, bowel, ureter, possible need for blood transfusion with all its possible risks. The patient verbalized understanding all questions answered and signed consent. Urine test done in the office was negative The patient was placed into the dorsal lithotomy position; a speculum was inserted in the vagina. Using aseptic technique for the procedure, the cervix was cleansed with Betadine. The anterior lip of the cervix was grasped with a single tooth tenaculum. The uterus was sounded to 7 cm with a 4 mm Pipelle was used. Tissues samples were obtained and placed in formalin, in a patient labeled container and sent to the pathology department. At the end of the procedure, there was minimal bleeding noted The patient tolerated the procedure well and was discharged in good condition with the following instructions: Nothing in the vagina until the bleeding stops. No sex until the bleeding stops, to call if any of the following occurs: fever (>100.4), flu-like symptoms, abdominal pain, heavy bleeding, four smelling vaginal discharge. The patient was instructed to schedule a Follow up appointment in 2 weeks to discuss pathology results of the biopsy and treatment options. This note was generated with a voice recognition program. Some errors may have been overlooked during the review of this note. Sometimes these errors may affect the content or meaning of a given sentence. 21809-Yqeabzkrhpo Biopsy Assessment & Plan Assessment & Plan (1) Abnormal uterine bleeding: Code(s): N93.9 - Abnormal uterine and vaginal bleeding, unspecified Plan: EMB done, see procedure note (2) ASCUS with positive high risk HPV cervical: Code(s): R87.610 - Atypical squamous cells of undetermined significance on cytologic smear of cervix (ASC-US); R87.810 - Cervical high risk human papillomavirus (HPV) DNA test positive Plan: Discussed with the patient the result of her abnormal pap, its significance, risk of progression, persistence, and regression. the false positive/negative rate of a Pap smear as a screening test in detecting cervical cancer and the indication for a diagnostic test -colposcopy, biopsy, endocervical curettage. Colpo/biopsy/ECC done, see procedure note. The patient verbalized understanding and agreed with the plan, all questions answered. Orders: Orders AMB Colposcopy Today R87.610 - Atypical squamous cells of undetermined significance on cytologic smear of cervix (ASC-US), R87.810 - Cervical high risk human papillomavirus (HPV) DNA test positive AMB Endometrial Biopsy Today N93.9 - Abnormal uterine and vaginal bleeding, unspecified Coding Level of Care Code Procedure Only Diagnoses Abnormal uterine bleeding N93.9 ASCUS with positive high risk HPV cervical R87.610; R87.810 CPT Codes Colposcopy - CPT: 19602-Ptregduch of cervix including upper vagina with biopsy and ECC ([id number]) Endometrial Biopsy - CPT: 28309-Rszvnqntrml Biopsy ([id number])
== END 2023-04-28 15:14 | disposition home or self-care (01) ==
LOC: HO.HWS 14:36
PROVIDERS: PCP Internal Medicine; Visit Provider Obstetrics & Gynecology
DX: R87.610 Atypical squamous cells of undetermined significance on cytologic smear of cervix (ASC-US) (principal); R87.810 Cervical high risk human papillomavirus (HPV) DNA test positive; N93.9 Abnormal uterine and vaginal bleeding, unspecified; Z32.02 Encounter for pregnancy test, result negative
CPT/HCPCS: 57454; 58110

== ENCOUNTER 2023-06-01 08:42 | Emergency (ER) | payer OTHER, SELFPAY ==
[2023-06-01 08:49] VITALS: BP 128/80; PULSE 118; RESP 20; TEMP 37.6; O2SAT 96; BMI 32.3
[2023-06-01 09:16] LABS: IDNOW Serial# 08D9AD1C; Strep A Nucleic Acid Positive (Negative)
--- NOTE | 2023-06-01 09:25 | ED_ITS ---
HPI - General Adult General Chief complaint: Upper Respiratory Symptoms Stated complaint: Fever, sore throat, body aches Time Seen by Provider: 06/01/23 09:24 Source: patient Mode of arrival: ambulatory Limitations: no limitations History of Present Illness HPI narrative: Patient is a 32-year-old female with history of tonsillectomy presenting to the emergency department with complaint of sore throat, body aches, chills, nasal congestion, headache and nonproductive cough for the past 2 days. Daughter is sick with similar symptoms. complaint: sore throat Onset (ago): day(s) Severity: severe Quality: burning Pain Consistency: constant Exacerbating factors: eating Associated symptoms: fever/chills and headaches Treatments prior to arrival: none Related Data Previous Rx's Medication Instructions Recorded penicillin V potassium 500 mg 500 mg PO BID 10 days #20 tabs 06/01/23 tablet Allergies Allergy/AdvReac Type Severity Reaction Status Date / Time No Known Allergies Allergy Verified 04/28/23 14:56 Review of Systems Review of Systems: As per HPI. Yes all other systems are reviewed and are negative Constitutional: Constitutional: Reports as per HPI PMFSH Past Medical History Medical History Persistent headaches Vaginal discharge Anxiety disorder HPV in female Onychomycosis Hammertoes of both feet Obesity (BMI 30-39.9) Bacterial vaginosis Surgical History History of section History of tonsillectomy Family History Family History Father Unknown family medical history Mother No problems noted. Maternal Grandmother Glaucoma Maternal Grandfather CVD (cardiovascular disease) Myocardial infarction Paternal Grandfather Unknown family medical history Paternal Grandmother Unknown family medical history Maternal Aunt Diabetes mellitus Brother No problems noted. Sister No problems noted. Daughter No problems noted. Daughter No problems noted. Maternal Uncle Substance use disorder Maternal Uncle Substance use disorder Maternal Uncle Substance use disorder Social History Social History Housing: Apartment Alcohol intake: never Patient Tobacco Use Status: Never used Tobacco e-Cigarette/Vaping Use: Never Used Substance Use Type: Marijuana Advance Directives: No Current occupational status: employed Sexual orientation: Straight/Heterosexual Gender identity: Female Cognitive needs: No Hearing needs: No Vision needs: No Physical Exam ED Vital Signs: Vital Signs - 24 hr 06/01/23 08:49 Temperature 99.7 F Pulse Rate 118 H Respiratory Rate 20 Blood Pressure 128/80 Pulse Oximetry 96 Oxygen Delivery Method Room Air BMI result Body Mass Index 32.3 Vital signs have been reviewed and appear to be correct. Blood pressure normal. Heart rate tachycardic. Respiratory rate normal. Temperature normal. Oxygen saturation normal. Const General: cooperative, healthy appearing and no acute distress Orientation/consciousness: oriented to person, oriented to place, oriented to time and patient oriented x3 Limitations: no limitations HENMT Head: Yes normocephalic and Yes atraumatic Ears: external ears normal, TM's normal bilaterally and EAC's normal General nose exam: Normal external nose present Face and sinus: Yes face symmetric Mouth: oropharynx normal and moist mucous membranes Throat: Yes uvula midline, Yes posterior oropharynx abnormal (erythema), Yes tonsils absent and No uvular edema Eyes Pupils: Equal, round and reactive pupils present Neck Neck: Yes normal visual inspection and Yes supple Lymphatic: no lymphadenopathy noted Resp Effort & Inspection: normal respiratory effort and able to speak in complete sentences Auscultation: clear to auscultation bilaterally Cardio Rate: regular rate Rhythm: regular rhythm Heart sounds: S1 normal heart sound present and S2 normal heart sound present GI Palpation (GI): Soft to palpation and nontender Auscultation: normoactive bowel sounds General: Yes no CVA tenderness Back/Spine/Pelvis Back: no CVA tenderness Skin General skin exam: elasticity normal and turgor normal Neuro General: oriented to person, oriented to place, oriented to time, patient oriented x3, moves all extremities, no focal motor deficits and CN's II-XI intact bilaterally Cranial nerves: Yes Equal, round and reactive pupils present Cognition (Neuro): normal cognition Extrem General: Yes full ROM, Yes no pedal edema and Yes no calf tenderness Psych Mental Status: mental status grossly normal Affect: normal affect Thought process: Normal thought process present Medical Decision Making Medical Decision Making MDM Narrative: Patient is a 32-year-old female with history of tonsillectomy presenting to the emergency department with complaint of sore throat, body aches, chills, nasal congestion, headache and nonproductive cough for the past 2 days. On exam patient is awake, A+Ox3, mildly tachycardic, VS otherwise WNL, afebrile, normal neurological exam without focal deficits, physical exam findings as above. Given reported symptoms and physical exam findings, initial differential includes strep pharyngitis, viral illness, covid, flu, rsv. Strep swab positive. Will treat patient with penicillin, advised her to alternate Tylenol and ibuprofen, perform warm salt water gargles. Patient choosing to be discharged prior to viral swab being resulted, we will contact with any positive results. Return precautions discussed at bedside. Instructed patient to follow-up with her primary care provider for any ongoing concerns. Patient verbalized understanding of and agreement with plan. Differential Diagnosis Differential Diagnoses: The differential diagnosis associated with the presentation includes As per [facility]. Lab Data [facility] Lab Attestation statement: I reviewed the patient's lab results. As per [facility]. Labs: Lab Results 06/01/23 Range/Units 09:02 S. pyogenes GrpA HUSSAIN Positive A (Negative) External Record Review External record reviewed: Inpatient record, Office record and Outpatient record Prescription Management I considered prescription management with: Antibiotic Discharge Plan Discharge Clinical Impression: Acute streptococcal pharyngitis Patient Disposition: Home, Self-Care Instructions: Strep Throat (DC) Additional Instructions: You were evaluated in the emergency department today for a sore throat. Your strep swab was positive. You are being prescribed antibiotics, please complete the full course as prescribed even if your symptoms improve. You are contagious until you have taken the antibiotics for 24 hours. Be sure to drink adequate fluids. You can use Tylenol and ibuprofen per package directions as needed for discomfort. You can also gargle with warm salt water several times daily. Follow-up with your primary care provider this week. Return to the emergency department if you develop difficulty swallowing, worsening pain, shortness of breath, are unable to swallow your saliva, fever not improved with Tylenol/ibuprofen, or any other concerning symptoms. Prescriptions: New penicillin V potassium 500 mg tablet 500 mg PO BID 10 Days Qty: 20 0RF Stand Alone Forms: Work/School Release
[2023-06-01 09:58] LABS: Influenza A PCR NEGATIVE (Negative); Influenza B PCR NEGATIVE (Negative); Resp Syncy Virus RNA Qual PCR NEGATIVE (Negative); SARS COV2 PCR INHOUSE NEGATIVE (Negative)
[2023-06-01 10:11] VITALS: BP 128/84; PULSE 85; RESP 18; TEMP 36.8; O2SAT 98
== END 2023-06-01 10:12 | disposition home or self-care (01) ==
PROVIDERS: Emergency Provider Emergency Medicine; PCP Internal Medicine
DX: J02.0 Streptococcal pharyngitis (principal)
CPT/HCPCS: 0241U; 87651; 99283

== ENCOUNTER 2023-06-02 14:53 | Outpatient (AMB) | payer OTHER, SELFPAY ==
--- NOTE | 2023-06-02 14:54 | MHC.OFFVIS ---
Intake Intake Visit Reasons: Colpo/EMB Results Technology Services Manager Required: No Information Interpreted: non-clinical & clinical Accompanied by: Self / Same As Patient Allergies No Known Allergies Allergy (Verified 06/02/23 14:54) HPI HPI Comments History of Present Illness Details The patient scheduled tele health visit to discuss the results of her pathology report for colposcopy/biopsy/ECC regarding abnormal Pap smear showing ascus/HPV E6/E7 positive and for endometrial biopsy for AUB. The pathology report showed the following: A. Labeled EMB : Benign endocervical glandular and scant squamous epithelium; no endometrium identified (see comment). B. Labeled ECC : Scant benign inactive endometrium with focal secretory changes and benign endocervical glandular epithelium; no atypia or carcinoma (see comment). C. Cervix, 4:00, biopsy: Squamous mucosa with focal atypia; no endocervical glandular epithelium present. (see comment). D. Cervix, 5:00, biopsy: Squamous mucosa and detached fragments of endocervical glandular epithelium; negative for dysplasia. E. Cervix, 6:00, biopsy: Squamous mucosa with no specific change; no endocervical glandular epithelium present. F. Cervix, 7:00, biopsy: Squamous and endocervical mucosa with inflammation and focal squamous atypia, cannot exclude low grade squamous intraepithelial lesion. G. Cervix, 12:00, biopsy: Squamous and endocervical glandular mucosa; negative for dysplasia. Comment: (A and B): The specimens appear to have been switched and are reported as received. The atypical cells in the patient's previous Pap test ([id number]) are similar to the atypical cells in the current biopsy The following workup was done.: H&H, TSH, PRL, hCG ordered but not done yet GC and chlamydia were negative. Pelvic ultrasound showed the following: Pelvic ultrasound showed the following: Uterus: The uterus is anteverted and measures 8.6 x 4.8 x 5.2 cm. The uterus has an arcuate appearance. 2. Cysts are seen within the cervix. The double wall endometrial thickness is 6 mm. The uterus is smooth in contour and has normal myometrial echogenicity. No visible fibroid. Adnexa: Both ovaries are visualized.There is normal color flow to the adnexa. There is no ovarian torsion. There is no pelvic ascites or fluid collection. Right ovary measures 3.5 x 1.9 x 2.2 cm, volume 7.7 mL. A 7 mm hypoechoic probable hemorrhagic cyst is seen, of doubtful clinical significance. Left ovary measures 0.9 x 1.3 x 0.9 cm, volume 0.6. PFSH Medical History Persistent headaches Vaginal discharge Anxiety disorder HPV in female Onychomycosis Hammertoes of both feet Obesity (BMI 30-39.9) Bacterial vaginosis Surgical History History of section History of tonsillectomy Family History Father Unknown family medical history Mother No problems noted. Maternal Grandmother Glaucoma Maternal Grandfather CVD (cardiovascular disease) Myocardial infarction Paternal Grandfather Unknown family medical history Paternal Grandmother Unknown family medical history Maternal Aunt Diabetes mellitus Brother No problems noted. Sister No problems noted. Daughter No problems noted. Daughter No problems noted. Maternal Uncle Substance use disorder Maternal Uncle Substance use disorder Maternal Uncle Substance use disorder Social History Housing: Apartment Unable to assess alcohol history related to: Unknown Alcohol intake: never Patient Tobacco Use Status: Never used Tobacco e-Cigarette/Vaping Use: Never Used Substance Use Type: Marijuana Current occupational status: employed Sexual orientation: Straight/Heterosexual Gender identity: Female Cognitive needs: No Hearing needs: No Vision needs: No Female Reproductive History Menstrual Age of Menarche: 9 Review of Systems Const All systems reviewed & are unremarkable except as noted in HPI and below Reports as per HPI and Reports no additional complaints GI Reports no additional complaints Reports no additional complaints Assessment & Plan Assessment & Plan (1) Cervical atypia: Comment: Cannot rule out FRANCISCO JAVIER 1 Code(s): N87.9 - Dysplasia of cervix uteri, unspecified Plan: Discussed with the patient the pathology results of the colposcopy biopsies & endocervical curettage (5 o'clock cervical biopsy site showed cervical atypia can not rule out FRANCISCO JAVIER 1). Discussed with the patient the sensitivity specificity, positive and negative predictive value in detecting cervical cancer in addition discussed the regression, persistence and progression rates. Recommended co-testing in 12 months, if cytology and or HPV are abnormal will proceed was colposcopy biopsy and endocervical curettage. Instructions given to the patient to schedule a co test appointment in 1 year. All questions answered the patient verbalized understanding. (2) Abnormal uterine bleeding: Code(s): N93.9 - Abnormal uterine and vaginal bleeding, unspecified Plan: Discussed with the patient the results of the work up done and options of treatment including but not limited to BCP's, cyclic Progesterone, Mirena IUD, endometrial ablation and hysterectomy. All pros, cons, risks and benefits of each option were discussed with the patient and the patient decided to go ahead with cyclic Prometrium, (the patient is not interested in a contraceptive method) so a more detailed discussion re: Progesterone treatment including mechanism of action, benefits (regular menses, endometrial protection form unopposed estrogen and reduction in the risk of endometrial hyperplasia and/or cancer ...), risks (Thrombosis, mood changes, weight gain, breast soreness, ? increased breast ca, others). Instructions were given to use a back- up method for contraception since this is not a method control, take the medication 1 tablet daily starting day 15-24 and to schedule a 3 months follow-up appointment; patient verbalized understanding and agreed with the plan. (3) Hemorrhagic cyst of ovary: Code(s): N83.209 - Unspecified ovarian cyst, unspecified side Plan: Discussed with the patient the finding ultrasound showing hemorrhagic cyst with no indication for further follow-up. The patient was reassured, what questions answered, patient verbalized understanding (4) Arcuate uterus: Code(s): Q51.810 - Arcuate uterus Plan: Discussed with the patient the finding on ultrasound showing arcuate uterus its potential implications on future fertility, all questions answered, the patient verbalized understanding I spent a total of 20 minutes reviewing the chart, talking to the patient via video and documenting in the medical record. Medications: New progesterone micronized (Prometrium) Take the pill 1 tablet a day cyclically every month from day 15-24 day 1 being the 1st day of next menstrual cycle 200 mg PO BEDTIME 10 days 30 caps 0RF Telehealth Telehealth Location of provider rendering services: practice address Location of patient: address on file Patient Identification confirmed using: Name, : Yes Telehealth method: video Patient verbally consented to treatment: Yes Patient verbally consented to billing insurance company: Yes Patient informed of any privacy concerns related to visit: Yes Coding Level of Care Code Tele Est Pt Level 1 (15160) Diagnoses Cervical atypia N87.9 Abnormal uterine bleeding N93.9 Hemorrhagic cyst of ovary N83.209 Arcuate uterus Q51.810
== END 2023-06-02 16:27 | disposition home or self-care (01) ==
LOC: HO.HWS 14:53
PROVIDERS: PCP Internal Medicine; Visit Provider Obstetrics & Gynecology
DX: N87.9 Dysplasia of cervix uteri, unspecified (principal); N93.9 Abnormal uterine and vaginal bleeding, unspecified; N83.209 Unspecified ovarian cyst, unspecified side; Q51.810 Arcuate uterus
CPT/HCPCS: 99211

== ENCOUNTER → 2023-06-02 14:53 | Outpatient (BNVA) | payer OTHER, SELFPAY | PROVIDERS: PCP Internal Medicine; Visit Provider Obstetrics & Gynecology ==

== ENCOUNTER 2023-06-24 08:00 | Outpatient (AMB) | payer OTHER, SELFPAY ==
[2023-06-24 08:03] VITALS: BP 110/70; PULSE 69; O2SAT 100; BMI 32.3
--- NOTE | 2023-06-24 08:03 | A.OFFPC_ITS ---
Vital Signs 06/24/23 08:03 Height 5 ft 6 in Weight 200 lb BMI 32.3 BP 110/70 Blood Pressure Location Lt brachial Position Sitting Pulse 69 Pulse Source Pulse Oximeter Pulse Oximetry (%) 100 Oxygen Delivery Method Room Air Intake Visit Reasons: c/o migraines, fatigue, nausea Allergies No Known Allergies Allergy (Verified 06/24/23 08:15) Medication List - Last Reconciled 06/24/23 by Loly Rodriguez MD fluoxetine 20 mg PO DAILY nortriptyline 10 mg PO BEDTIME progesterone micronized (Prometrium) 200 mg PO BEDTIME 10 days sumatriptan succinate take 1 tab at onset of headache; if no relief, may repeat 1 tab after at least 2 hrs; max = 2 tabs/24 hrs orally PRN; Tobacco use date assessed: 06/24/23 Dental Screening Dental Screen Date: 06/24/23 Did you have a dental visit in the last 12 months?: Yes Did you have a dental problem in the last 6 months where you did not have access to dental care?: Yes Was dental information given to patient?: Patient has dentist HPI c/o migraines, fatigue, nausea HPI Details 32-year-old lady Here today complaining recurrent headache, easy fatigability. Patient describes headache to be above her ice, as a throbbing pain, aggravated by light and noise. Try taking acetaminophen, Excedrin migraine, ibuprofen which affords not much relief. She is also complaining of having difficulty sometimes initiating sleep. [facility] Medical History (Updated 06/24/23 @ 08:17 by Loly Rodriguez MD) Persistent headaches Vaginal discharge Anxiety disorder HPV in female Onychomycosis Hammertoes of both feet Obesity (BMI 30-39.9) Bacterial vaginosis Surgical History History of section History of tonsillectomy Family History Father Unknown family medical history Mother No problems noted. Maternal Grandmother Glaucoma Maternal Grandfather CVD (cardiovascular disease) Myocardial infarction Paternal Grandfather Unknown family medical history Paternal Grandmother Unknown family medical history Maternal Aunt Diabetes mellitus Brother No problems noted. Sister No problems noted. Daughter No problems noted. Daughter No problems noted. Maternal Uncle Substance use disorder Maternal Uncle Substance use disorder Maternal Uncle Substance use disorder Social History Housing: Apartment Unable to assess alcohol history related to: Unknown Alcohol intake: never Patient Tobacco Use Status: Never used Tobacco e-Cigarette/Vaping Use: Never Used Substance Use Type: Marijuana Current occupational status: employed Sexual orientation: Straight/Heterosexual Gender identity: Female Cognitive needs: No Hearing needs: No Vision needs: No Female Reproductive History Menstrual Age of Menarche: 9 Questionnaire PHQ-9 Over the last 2 weeks, how often have you been bothered by any of the following problems? 1. Little interest or pleasure in doing things: several days 2. Feeling down, depressed, or hopeless: several days 3. Trouble falling or staying asleep, or sleeping too much: nearly every day 4. Feeling tired or having little energy: nearly every day 5. Poor appetite or overeating: several days 6. Feeling bad about yourself - or that you are a failure or have let yourself or your family down: several days 7. Trouble concentrating on things, such as reading the newspaper or watching television: more than half the days 8. Moving or speaking so slowly that other people could have noticed. Or the opposite - being so fidgety or restless that you have been moving around a lot more than usual: not at all 9. Thoughts that you would be better off or of hurting yourself in some way: not at all Total score: 12 Depression Screening Interpretation: Positive (Currently followed by Sherly Nation) Depression Screening Follow-up: Existing condition, In treatment and Community Mental Health Worker F/U Depression Screening Done: Yes 91096 - PHQ-9 Billing: Yes Source: Developed by Drs. Lionel Salcedo, Steffi Bethea, Abbe Delvalle and colleagues, with an educational river from [employer]. Thrive Questionnaire Date Thrive assessed: 06/24/23 I am a: Patient What is your living situation today?: I have a steady place to live Within the past 12 months, did the food you bought not last and you didn't have the money to get more?: Never true Within the past 12 months, did you worry whether your food would run out before you got money to buy more?: Never true Do you have trouble paying for medicines?: No Do you have trouble getting transportation to medical appointments?: No Do you have trouble paying your heating and electricity bill?: No Do you have trouble taking care of your child, family member or friend?: No Do you have trouble with day-to-day activities such as bathing, preparing meals, shopping, managing finances, etc.?: No Are you currently unemployed and looking for a job?: No Are you interested in more education?: No THRIVE Score: 0 AUDIT C Alcohol Use Questionnaire (AUDIT-C) 1. How often do you have a drink containing alcohol?: Never Total Score: 0 RONALD-7 AMB Questionnaire RONALD-7 Date RONALD - 7 assessed: 06/24/23 Feeling nervous, anxious, or on edge: 2 = More than half the days Not being able to stop or control worryin = Several days Worrying too much about different things: 2 = More than half the days Trouble relaxin = More than half the days Being so restless that it is hard to sit still: 2 = More than half the days Becoming easily annoyed or irritable: 2 = More than half the days Feeling afraid as if something awful might happen: 0 = Not at all Total RONALD-7 score (0-4 normal; 5-9 mild; 10-14 moderate; 15-21 severe): 11 Source: Developed by Drs. Lionel Salcedo, Steffi Bethea, Abbe Delvalle and colleagues, with an educational river from [employer]. RONALD-7 Assessment Billing RONALD-7 Assessment Tool: RONALD-7 Assessment 52902 Review of Systems Const Reports as per HPI Eyes Denies change in vision ENT Reports no additional complaints Card Denies chest pain, Denies syncope, Denies rapid heart rate, Denies irregular heart rhythm, Denies lightheadedness and Denies dyspnea Resp Denies cough and Denies dyspnea GI Reports no additional complaints Details: Has history of abnormal uterine bleeding, currently followed by Dr. Kinney Musc Reports no additional complaints Neuro Reports no additional complaints and Denies syncope Psych Reports as per HPI Endo Reports no additional complaints Luc/Lymph Reports no additional complaints Physical exam (Primary Care) Vital Signs: Last Vital Signs Pulse 69 06/24/23 08:03 BP 110/70 06/24/23 08:03 Pulse Ox 100 06/24/23 08:03 Oxygen Delivery Method Room Air 06/24/23 08:03 BMI result Body Mass Index 32.3 BMI Assessment/Plan discussion: High BMI High, discussed plan: lifestyle, weight reduction, dietary and physical activity Tobacco/Smoking Status: Tobacco use Status Tobacco use date assessed 06/24/23 06/24/23 08:07 Patient Tobacco Use Status Never used Tobacco 06/24/23 08:07 e-Cigarette/Vaping Use Never Used 06/24/23 08:07 PHQ-9: PHQ-9 Score PHQ-9: Total score 12 06/24/23 08:55 Depression Screening Interpretation: Positive (Currently followed by Sherly Nation) Depression Screening Follow-up: Existing condition, In treatment and Community Mental Health Worker F/U Thrive Assessment: Date of Thrive Assessment Date Thrive assessed 06/24/23 06/24/23 08:42 Advance Care Planning discussion: Completed/Scanned Date of discussion: 06/24/23 Who was present: Patient Forms completed: Health Care Proxy Time spent: 16-45 minutes Actual minutes spent: 16 Const General: comfortable, no acute distress and alert Nutritional Appearance: obese morbidly obese Orientation/consciousness: patient oriented x3 HENMT Head: Yes normocephalic and Yes atraumatic Ears: hearing grossly normal bilaterally, external ears normal, TM's normal bilaterally and EAC's normal General nose exam: Normal external nose present and No nasal discharge present Face and sinus: Yes face symmetric Mouth: Normal oral and palatal mucosa present, oropharynx normal and moist mucous membranes Eyes General: appearance normal, both eyes and all related structures Neck Neck: Yes full ROM, Yes no lymphadenopathy and Yes supple Thyroid: Thyroid normal (Nonpalpable) Chest Chest palpation & inspection: normal inspection of the chest and normal palpation of entire chest wall Breast/axilla inspection: normal inspection of the breasts and Other (Heavy large breasts) Breast/axilla palpation: normal palpation of the breasts Resp Effort & Inspection: normal respiratory effort and able to speak in complete sentences Auscultation: clear to auscultation bilaterally Cardio Palpation: normal PMI Rate: regular rate Rhythm: regular rhythm Heart sounds: S1 normal heart sound present and S2 normal heart sound present GI Inspection: Yes obesity Palpation (GI): Soft to palpation, nontender, no guarding, no hernias and no masses Auscultation: normal bowel sounds Other: Sees OBGYN at [facility] General: Yes no CVA tenderness Back/Spine/Pelvis Back: no CVA tenderness and No back tenderness Neuro General: patient oriented x3, gait normal, tone normal, moves all extremities, Normal light touch and pain sensation, no focal motor deficits and CN's II-XI intact bilaterally Cranial nerves: Yes CN's II-XII intact bilaterally Cognition (Neuro): normal cognition Gait exam (Neuro): Normal gait present Motor exam (neuro): 5/5 motor strength present throughout Psych Appearance: grossly normal and well kempt Mental Status: mental status grossly normal Speech and movement: Normal speech and movement present Affect: normal affect Attitude: cooperative Thought process: Normal thought process present Thought content: Normal thought content present Assessment and Plan Assessment & Plan (1) Persistent headaches: Code(s): R51.9 - Headache, unspecified Plan: Empirically started on sumatriptan 100 mg per tablet to take as directed, may take a 2nd dose 2 hours after if headache is not completely resolved. Started on nortriptyline 10 mg per capsule to take 1 at bedtime. Call in 3-4 weeks if no improvement of symptoms and will refer to neurology for further evaluation (2) Anxiety disorder: Code(s): F41.9 - Anxiety disorder, unspecified Plan: Currently followed by Sherly Olvera and was prescribed fluoxetine 20 mg per capsule taken once a day , however she has been taking it irregularly. Advised to take medicines as directed (3) Fatigue: Code(s): R53.83 - Other fatigue Qualifiers: Fatigue type: unspecified Qualified Code(s): R53.83 - Other fatigue Plan: Ordered CBC, iron profile, BMP, fasting lipids done TSH with free T4 at vitamin- D. (4) Vitamin D deficiency: Code(s): E55.9 - Vitamin D deficiency, unspecified Plan: Will check vitamin-D (5) Abnormal uterine bleeding: Code(s): N93.9 - Abnormal uterine and vaginal bleeding, unspecified Plan: Currently followed by Dr. Kinney Orders: Orders Alanine Aminotransferase 06/24/23 F41.9 - Anxiety disorder, unspecified, N93.9 - Abnormal uterine and vaginal bleeding, unspecified, R51.9 - Headache, unspecified, R53.83 - Other fatigue TSH reflex Free T4 06/24/23 F41.9 - Anxiety disorder, unspecified, N93.9 - Abnormal uterine and vaginal bleeding, unspecified, R51.9 - Headache, unspecified, R53.83 - Other fatigue Vitamin D 25-OH Total 06/24/23 E55.9 - Vitamin D deficiency, unspecified, F41.9 - Anxiety disorder, unspecified, N93.9 - Abnormal uterine and vaginal bleeding, unspecified, R51.9 - Headache, unspecified, R53.83 - Other fatigue Complete Blood Count Auto Diff 06/24/23 F41.9 - Anxiety disorder, unspecified, N93.9 - Abnormal uterine and vaginal bleeding, unspecified, R51.9 - Headache, unspecified, R53.83 - Other fatigue IRON PROFILE 06/24/23 F41.9 - Anxiety disorder, unspecified, N93.9 - Abnormal uterine and vaginal bleeding, unspecified, R51.9 - Headache, unspecified, R53.83 - Other fatigue Aspartate Amino Transferase 06/24/23 F41.9 - Anxiety disorder, unspecified, N93.9 - Abnormal uterine and vaginal bleeding, unspecified, R51.9 - Headache, unspecified, R53.83 - Other fatigue Basic Metabolic Panel Fasting 06/24/23 F41.9 - Anxiety disorder, unspecified, N93.9 - Abnormal uterine and vaginal bleeding, unspecified, R51.9 - Headache, unspecified, R53.83 - Other fatigue Lipid Panel 06/24/23 F41.9 - Anxiety disorder, unspecified, N93.9 - Abnormal uterine and vaginal bleeding, unspecified, R51.9 - Headache, unspecified, R53.83 - Other fatigue Medications: New sumatriptan succinate take 1 tab at onset of headache; if no relief, may repeat 1 tab after at least 2 hrs; max = 2 tabs/24 hrs orally PRN; 10 tabs 0RF migraine headache nortriptyline 10 mg PO BEDTIME 30 caps 0RF Coding Level of Care Code Est Pt Level 4 (47753) Diagnoses Persistent headaches R51.9 Anxiety disorder F41.9 Fatigue, unspecified type R53.83 Fatigue type: unspecified Vitamin D deficiency E55.9 Abnormal uterine bleeding N93.9 Additional Codes RONALD-7 Assessment Billing - RONALD-7 Assessment Tool: RONALD-7 Assessment 49654 ([id number]) Vital Signs *Quality* - Advance Care Planning discussion: Completed/Scanned ([id number]) Vital Signs *Quality* - Time spent: 16-45 minutes ([id number])
== END 2023-06-24 08:44 | disposition home or self-care (01) ==
PROVIDERS: PCP Internal Medicine; Visit Provider Internal Medicine
DX: R51.9 Headache, unspecified (principal); F41.9 Anxiety disorder, unspecified; R53.83 Other fatigue; E55.9 Vitamin D deficiency, unspecified; N93.9 Abnormal uterine and vaginal bleeding, unspecified; Z00.00 Encounter for general adult medical examination without abnormal findings
CPT/HCPCS: 1123F; 99214; 99497

== ENCOUNTER 2023-06-24 08:44 | Outpatient (REF) | payer OTHER, SELFPAY ==
[2023-06-24 10:20] LABS: MANUAL DIFF FLAG NO
[2023-06-24 10:36] LABS: Basophils Absolute Auto 0.1 X10*3/uL (0.0-0.2); Basophils Percent Auto 0.8 % (0-2); Eosinophils Absolute Auto 0.1 X10*3/uL (0.0-0.4); Eosinophils Percent Auto 1.9 % (0-4); Hematocrit 40.1 % (37.0-47.0); Hemoglobin 13.3 g/dl (12.0-16.0); Imm Gran Abs Auto 0.02 X10*3/uL (0.00-0.03); Imm Gran Pct Auto 0.3 % (0.0-0.4); Lymphocytes Absolute Auto 2.4 X10*3/uL (1.2-4.9); Lymphocytes Percent Auto 37.9 % (20-40); Mean Corpuscular HGB Conc 33.2 g/dl (31.0-35.0); Mean Corpuscular Volume 84.4 fL (80.0-98.0); Mean Platelet Volume 10.1 fL (9.4-12.3); Monocytes Absolute Auto 0.3 X10*3/uL (0.1-1.2); Monocytes Percent Auto 5.2 % (2-11); Neutrophils Absolute Auto 3.4 x10*3/uL (2.0-8.3); Neutrophils Percent Auto 53.9 % (45-73); Platelet Count 367 X10*3/uL (160-400); Red Blood Count 4.75 X10*6/uL (4.20-5.50); Red Cell Distribution Width 13.3 % (11.0-16.0); White Blood Count 6.3 X10*3/uL (4.8-10.8)
[2023-06-24 10:54] LABS: Alanine Aminotransferase 20 U/L (0-31); Anion Gap 9 (12-20); Aspartate Amino Transferase 20 U/L (5-31); Blood Urea Nitrogen 11 mg/dL (9-16); Calcium 9.3 mg/dL (8.4-10.2); Carbon Dioxide 30 mmol/L (22-29); Chloride 105 mmol/L (96-108); Cholesterol 183 mg/dL (<200); Estimated Glomerular Filt Rate > 60; Glucose Fasting 94 mg/dL (60-99); HDL Cholesterol 52 mg/dL (>40); Iron 105 mcg/dL (30-160); LDL Cholesterol Calculated 117 mg/dL (<100); Percent Iron Saturation 33 % (15-50); Potassium 4.3 mmol/L (3.3-5.1); Sodium 140 mmol/L (135-145); Total Iron Binding Capacity 318 mcg/dL (228-428); Triglycerides 74 mg/dL (<150); Unsaturated Iron Binding 213 ug/dL
[2023-06-24 11:04] LABS: HBsAGNum1 0.37 S/CO (0.00-0.99); HIV AB/AG Nonreactive (Nonreactive); HIV Num 1 0.06 S/CO (0.00-0.99); Hepatitis B Surface Antigen Negative (Negative); ~HepC Num1 0.09 S/CO (0.00-0.79); ~Hepatitis C Antibody Nonreactive (Nonreactive)
[2023-06-24 11:05] LABS: Syphilis Screen Nonreactive (Nonreactive)
[2023-06-24 11:13] LABS: TSH reflex Free T4 0.73 uIU/mL (0.32-4.0); Vitamin D 25-OH Total 18.7 ng/mL (>30)
== END 2023-06-24 08:45 | disposition home or self-care (01) ==
LOC: HO.HMGCLDS 08:44
PROVIDERS: Obstetrics & Gynecology; PCP Internal Medicine; Visit Provider Internal Medicine
DX: N93.9 Abnormal uterine and vaginal bleeding, unspecified (principal); R51.9 Headache, unspecified; R53.83 Other fatigue; F41.9 Anxiety disorder, unspecified; E55.9 Vitamin D deficiency, unspecified; N76.0 Acute vaginitis; B96.89 Other specified bacterial agents as the cause of diseases classified elsewhere
CPT/HCPCS: 36415; 80048; 80061; 82306; 83540; 84443; 84450; 84460; 85025; 86780; 86803; 87340; 87389

== ENCOUNTER 2024-05-30 10:13 | Outpatient (AMB) | payer BC, SELFPAY ==
--- NOTE | 2024-05-30 10:21 | AM.OFFWIN_ITS ---
Intake Vital Signs 05/30/24 10:22 Weight 203 lb BP 110/70 Blood Pressure Location Lt brachial Position Sitting Pulse 69 Pulse Source Pulse Oximeter Pulse Oximetry (%) 98 Oxygen Delivery Method Room Air Intake Visit Reasons: EP-lower abd pain Intake Note: Patient here for lower abdominal pain that has been present for about 1 week. Patient Tobacco Use Status: Never used Tobacco Allergies No Known Allergies Allergy (Verified 05/30/24 10:23) Do you need a note to return to daycare/school/sports/work: No HPI HPI Comments History of Present Illness Details History of Present Illness - The patient is a 33-year-old female pr esenting with symptoms indicative of Bacterial Vaginosis, she has had it before and is familiar with the signs. - She reports experiencing 2 days of yasir racteristic lower abdominal pain and vaginal discharge with an odor, consistent with prior episodes of BV. - Her menstrual period is late, a common occurrence for her, potentially linked to premenopausal changes. - The patient is sexually active and con siders unlikely; she associates the delay with her typical menstrual irregularities. - She prefers metronidazole in pill form to manage BV symptoms effectively. Physical Exam General: Cooperative, healthy appearing, comfortable, no acute distress and well developed Orientation: Patient oriented x3 Limitations: No limitations Head: Normal to inspection Ears: Hearing grossly normal bilaterally Nose: Normal External nose present Face and sinus: Normal facial exam Eyes: Appearance normal, both eyes and all related structures Neck: Normal visual inspection and Yes full ROM Respiratory: Normal respiratory effort and able to speak in complete sentences. Skin: No rashes or lesions noted Neuro: Patient oriented x3 Extremities: Normal to inspection [facility] Medical History (Updated 05/30/24 @ 10:39 by Herminia Pulido PA-C) Vitamin D deficiency Persistent headaches Vaginal discharge Anxiety disorder HPV in female Onychomycosis Hammertoes of both feet Obesity (BMI 30-39.9) Bacterial vaginosis Surgical History History of section History of tonsillectomy Family History Father Unknown family medical history Mother No problems noted. Maternal Grandmother Glaucoma Maternal Grandfather CVD (cardiovascular disease) Myocardial infarction Paternal Grandfather Unknown family medical history Paternal Grandmother Unknown family medical history Maternal Aunt Diabetes mellitus Brother No problems noted. Sister No problems noted. Daughter No problems noted. Daughter No problems noted. Maternal Uncle Substance use disorder Maternal Uncle Substance use disorder Maternal Uncle Substance use disorder Social History Housing: Apartment Unable to assess alcohol history related to: Unknown Alcohol intake: never Patient Tobacco Use Status: Never used Tobacco e-Cigarette/Vaping Use: Never Used Substance Use Type: Marijuana Current occupational status: employed Sexual orientation: Straight/Heterosexual Gender identity: Female Cognitive needs: No Hearing needs: No Vision needs: No Female Reproductive History Menstrual Age of Menarche: 9 Physical Exam Vital Signs: Last Vital Signs Pulse 69 05/30/24 10:22 BP 110/70 05/30/24 10:22 Pulse Ox 98 05/30/24 10:22 Oxygen Delivery Method Room Air 05/30/24 10:22 Results AMB Test Urine AMB Test Urine Negative Last Edit by CHELA Carrion on 05/30/24 10:46 Results Reviewed Results Reviewed: Laboratory Last Values Tst Clinic Negative 05/30/24 10:39 Assessment & Plan Assessment & Plan (1) Abnormal urogenital discharge: Code(s): R39.89 - Other symptoms and signs involving the genitourinary system Plan: The patient exhibits symptoms of Bacterial Vaginosis and will undergo a urine test to rule out before treatment. Urine test is negative. I plan to prescribe oral metronidazole for BV management if she tests positive, aligning with the patient's preference for pills over topical treatment. Self- swab instructions will be provided, and a swab test along with the urine test will be conducted for analysis. The clinic will handle the procedures, and upon return of results, my colleagues will ensure prescriptions are managed with the agreed oral medication. Patient was informed and verbally consented to the use of an ambient scribe for clinic note documentation during this visit. Orders: Orders Bacterial Vaginosis Panel Today R39.89 - Other symptoms and signs involving the genitourinary system AMB HCG Urine Test Today R39.89 - Other symptoms and signs involving the genitourinary system Coding Level of Care Code Est Pt Level 3 (31161) Diagnoses Abnormal urogenital discharge R39.89
[2024-05-30 10:22] VITALS: BP 110/70; PULSE 69; O2SAT 98
--- OUTSIDE RECORDS SUMMARY | 2024-05-30 11:53 | XMS_ITS | Clinical Summary ---
Author Organization [address] Address [address] [place] [phone] Phone Care Team Providers Care Superintendent Power Name Role Phone Unavailable Primary Care Provider Unavailabl e Surgical History Surgery Date Site/Laterality Comments SECTION PROCEDURE: [place] DELIVERY ONLY TONSILLECTOMY ADENOIDECTOMY, BILATERAL MYRINGOTOMY AND TUBES 1999 PROCEDURE: [place] TONSILLECTOMY & ADENOIDECTOMY <AGE 10; COMMENT: [facility] Medical History Medical History Date Comments Anemia DX:Anemia Anxiety state DX:Anxiety state Abnormal cytological finding in specimen from cervix 12/27/2012 DX:Abnormal cytological find ing in specimen from cervix; COMMENT: FRANCISCO JAVIER 1 Family History Medical History Relation Name Comments Other cancer Brother Stroke Brother Arthritis Mother Hypertension Mother Breast cancer Neg Hx Colon cancer Neg Hx Ovarian cancer Neg Hx Prostate cancer Neg Hx Relation Name Status Comments Brother Mother Social History Tobacco Use Types Packs/Day Years Used Date Smoking Tobacco: Never Smokeless Tobacco: Never Alcohol Use Standard Drinks/Week Comments No 0 (1 standard drink = 0.6 oz pur e alcohol) Comments Unknown Sex and Gender Information Value Date Recorded Sex Assigned at Not on file Legal Sex Female 5:42 PM EST Gender Identity Not on file Sexual Orientation Not on file Obstetrics History Last Filed Vital Signs Vital Sign Reading Time Taken Comments Blood Pressure 126/85 07/29/2023 9:28 AM EDT Pulse 83 07/29/2023 9:28 AM EDT Temperature - - Respiratory Rate - - Oxygen Saturation - - Inhaled Oxygen Concentration - - Weight 90.4 kg (199 lb 3.2 oz) 07/29/2023 9:28 A M EDT Height 167.6 cm (5' 6 ) 07/29/2023 9:28 AM EDT Body Mass Index 32.15 07/29/2023 9:28 AM EDT Plan of Treatment Health Maintenance Due Date Last Done Comments Hepatitis B Vaccines (1 of 3 - 19+ 3-dose series) 10/13/2007 Cervical Cancer Screening: P ap Smear 2009 Depression Screening 01/30/2022 HIV Screening 01/30/2022 Hepatitis C Screening 01/30/2022 Social Influencers of Health Screening 01/30/2022 DTaP,Tdap,and Td Vaccines (2 - Td or Tdap) 07/28/2022 07/28/2012 COVID-19 Vaccine (1 - 2023-2 5 season) 2023 Influenza Vaccine (#1) 2023 HPV Vaccines Completed 01/30/2008, 11/01/2007, 08/03/2007 HIB Vaccines Aged Out No longer eligi ble based on patient's age to complete this topic Hepatitis A Vaccines Aged Out No long er eligible based on patient's age to complete this topic IPV Vaccines Aged Out No longer eligi ble based on patient's age to complete this topic MMR Vaccines Aged Out No longer eligi ble based on patient's age to complete this topic Meningococcal ACWY Vaccine Aged Out N o longer eligible based on patient's age to complete this topic Meningococcal B Vacine Aged Out No lo nger eligible based on patient's age to complete this topic Pneumococcal Vaccine: Pediatrics (0 to 5 Years) and At-Risk Patients (6 to 64 Years) Aged Out No longer eligible b ased on patient's age to complete this topic RSV Immunization Patients Under 20 months Aged Out No longer eligible b ased on patient's age to complete this topic Varicella Vaccines Aged Out No longer eligible based on patient's age to complete this topic
== END 2024-05-30 10:54 | disposition home or self-care (01) ==
PROVIDERS: PCP Internal Medicine; Visit Provider Physician Assistant
DX: R39.89 Other symptoms and signs involving the genitourinary system (principal)

== ENCOUNTER 2024-05-30 10:13 | Outpatient (REF) | payer BC, SELFPAY ==
--- OUTSIDE RECORDS SUMMARY | 2024-05-30 12:39 | XMS_ITS | Clinical Summary ---
Author Organization [address] Address [address] [place] [phone] Phone Care Team Providers Care Coding Advisor Name Role Phone Unavailable Primary Care Provider Unavailabl e Surgical History Surgery Date Site/Laterality Comments SECTION PROCEDURE: [place] DELIV[place] ONLY TONSILLECTOMY ADENOIDECTOMY, BILATERAL MYRINGOTOMY AND TUBES 1999 PROCEDURE: [place] TONSILLECTOMY & ADENOIDECTOMY <AGE 10; COMMENT: [facility] Medical History Medical History Date Comments [...]
[2024-05-30 16:04] LABS: Bacterial Vaginosis PCR POSITIVE (Negative); Candida Group PCR NOT DETECTED (Not Detect); Candida glab krusei PCR NOT DETECTED (Not Detect); Trichomonas vaginalis PCR NOT DETECTED (Not Detect)
== END 2024-05-30 10:14 | disposition home or self-care (01) ==
LOC: HO.LAB 10:13
PROVIDERS: Physician Assistant; PCP Internal Medicine
DX: R39.89 Other symptoms and signs involving the genitourinary system (principal); R10.9 Unspecified abdominal pain; Z20.2 Contact with and (suspected) exposure to infections with a predominantly sexual mode of transmission
CPT/HCPCS: 81025; 81515

== ENCOUNTER 2024-06-12 09:49 | Outpatient (AMB) | payer OTHER, SELFPAY ==
--- NOTE | 2024-06-12 09:51 | A.OFFVIS_ITS ---
Intake Visit Reasons: co-test Interventional Radiology Tech: Interventional Radiology Tech Present (Misty) Accompanied by: Self / Same As Patient Allergies No Known Allergies Allergy (Verified 06/12/24 09:51) HPI Comments Details: Presenting for annual exam complaining of irregular menstrual cycles . Last Pap smear in 02/19 was ascus HPV E6 E7 positive, colpo biopsy ECC was negative except for 1 focus with atypia can not rule out FRANCISCO JAVIER 1 PFS Medical History Vitamin D deficiency Persistent headaches Vaginal discharge Anxiety disorder HPV in female Onychomycosis Hammertoes of both feet Obesity (BMI 30-39.9) Bacterial vaginosis Surgical History History of section History of tonsillectomy Family History Father Unknown family medical history Mother No problems noted. Maternal Grandmother Glaucoma Maternal Grandfather CVD (cardiovascular disease) Myocardial infarction Paternal Grandfather Unknown family medical history Paternal Grandmother Unknown family medical history Maternal Aunt Diabetes mellitus Brother No problems noted. Sister No problems noted. Daughter No problems noted. Daughter No problems noted. Maternal Uncle Substance use disorder Maternal Uncle Substance use disorder Maternal Uncle Substance use disorder Social History Housing: Apartment Unable to assess alcohol history related to: Unknown Alcohol intake: never Patient Tobacco Use Status: Never used Tobacco e-Cigarette/Vaping Use: Never Used Substance Use Type: Marijuana Current occupational status: employed Sexual orientation: Straight/Heterosexual Gender identity: Female Cognitive needs: No Hearing needs: No Vision needs: No Female Reproductive History Menstrual Age of Menarche: 9 Review of Systems Const All systems reviewed & are unremarkable except as noted in HPI and below Card Reports as per HPI Resp Reports as per HPI GI Reports as per HPI and Reports no additional complaints Reports as per HPI Physical Exam Const General: cooperative, healthy appearing and comfortable Chest Chest palpation & inspection: normal inspection of the chest and normal palpation of entire chest wall Breast/axilla inspection: normal inspection of the breasts and normal inspection of the axillae Breast/axilla palpation: normal palpation of the breasts, normal palpation of the axillae and no axillary lymphadenopathy Resp Effort & Inspection: normal respiratory effort Auscultation: clear to auscultation bilaterally Percussion: percussion normal Cardio Palpation: normal PMI Rate: regular rate Rhythm: regular rhythm Heart sounds: no murmurs and no rubs Peripheral pulses: Peripheral pulses 2+ throughout GI Inspection: Yes normal to inspection Palpation (GI): Soft to palpation, nontender, no guarding, not rigid and No hepatosplenomegaly present Percussion: Yes normal to percussion Auscultation: normal bowel sounds Rectal Exam - Female: deferred General: Yes bladder normal to palpation External Female Exam: No lesion Speculum Exam - Vagina: normal appearance of the vagina, normal palpation, normal vaginal discharge and not erythematous Speculum Exam - Cervix: normal appearance of the cervix and normal palpation Bimanual exam- vagina & uterus: normal bimanual exam, normal palpation, uterine size normal, bladder normal to palpation, consistency normal and normal palpation Bimanual Exam- Adnexa, other: normal adnexae, no masses and no tenderness Assessment & Plan Assessment & Plan (1) Well woman exam: Comment: 12/19 Pap negative/HPV positive, colpo/biopsy/ECC negative 02/19 ascus HPV E6 E7 positive, colpo biopsy cervical atypia can not rule out FRANCISCO JAVIER 1 Code(s): Z01.419 - Encounter for gynecological examination (general) (routine) without abnormal findings Category: Medical Plan: Cotesting done. Counseled the patient about the recommended dietary allowance of 1000 mg of Calcium & 600 IU of vitamin D. The patient was instructed to perform monthly self-breast exams and to schedule an annual exam in a year; All questions answered and the patient verbalized understanding. Instructed the patient to schedule annual exam in a year (2) Abnormal uterine bleeding: Code(s): N93.9 - Abnormal uterine and vaginal bleeding, unspecified Category: Medical Plan: Co testing done, GC and chlamydia taken CBC, TSH, HCG, and pelvic ultrasound ordered. Discussed with the patient the different causes of abnormal bleeding including thyroid disorders, uterine and ovarian pathology, endometrial hyperplasia, carcinoma and other potential causes. Discussed with the patient the work up including CBC (to r/o anemia), TSH, pelvic Ultrasound, endometrial biopsy to r/o endometrial pathology. All questions answered and the patient verbalized understanding. Instructed the patient to schedule an appointment for an endometrial biopsy in 2 weeks. Orders: Orders HCG Quantitative Today N93.9 - Abnormal uterine and vaginal bleeding, unspecified TSH reflex Free T4 Today N93.9 - Abnormal uterine and vaginal bleeding, unspecified Complete Blood Count no Diff Today N93.9 - Abnormal uterine and vaginal bleeding, unspecified US pelvic and transvaginal Today N93.9 - Abnormal uterine and vaginal bleeding, unspecified Coding Level of Care Code Est Pt Prev Care 18-39y(31751) Diagnoses Well woman exam Z01.419 Abnormal uterine bleeding N93.9
--- OUTSIDE RECORDS SUMMARY | 2024-06-12 11:14 | XMS_ITS | Clinical Summary ---
Author Organization [address] Address [address] [place] [phone] Phone Care Team Providers Care Physician Compensation Analyst Name Role Phone Unavailable Primary Care Provider Unavailabl e Surgical History Surgery Date Site/Laterality Comments SECTION PROCEDURE: [place] DELIVERY ONLY TONSILLECTOMY ADENOIDECTOMY, BILATERAL MYRINGOTOMY AND TUBES 1999 PROCEDURE: [place] TONSILLECTOMY & ADENOIDECTOMY <AGE 10; COMMENT: [facility] Medical History Medical History Date Comments Anemia [...] - 2023-2 5 season) 2023 Influenza Vaccine (Season Ended) 2024 HPV Vaccines Completed 01/30/2008, 11/01/2007, 08/03/2007 HIB [...] age to complete this topic Meningococcal B Vaccine Aged Out No l onger eligible based on patient's age to complete [...]
== END 2024-06-12 10:15 | disposition home or self-care (01) ==
LOC: HO.HWS 09:49
PROVIDERS: PCP Internal Medicine; Visit Provider Obstetrics & Gynecology
DX: Z01.419 Encounter for gynecological examination (general) (routine) without abnormal findings (principal); N93.9 Abnormal uterine and vaginal bleeding, unspecified
CPT/HCPCS: 99395; 99459

== ENCOUNTER 2024-06-12 09:49 | Outpatient (REF) | payer OTHER, SELFPAY ==
[2024-06-12 11:24] LABS: Hematocrit 39.7 % (37.0-47.0); Hemoglobin 13.5 g/dl (12.0-16.0); Mean Corpuscular Hemoglobin 27.8 pg (27.0-33.0); Mean Corpuscular Volume 81.9 fL (80.0-98.0); Mean Platelet Volume 9.8 fL (9.4-12.3); Platelet Count 285 X10*3/uL (160-400); Red Blood Count 4.85 X10*6/uL (4.20-5.50); Red Cell Distribution Width 13.2 % (11.0-16.0); White Blood Count 7.7 X10*3/uL (4.8-10.8)
[2024-06-12 12:12] LABS: HCG Quantitative < 2 mIU/mL; TSH reflex Free T4 0.52 uIU/mL (0.32-4.0)
--- OUTSIDE RECORDS SUMMARY | 2024-06-12 12:25 | XMS_ITS | Clinical Summary ---
Author Organization [address] Address [address] [place] [phone] Phone Care Team Providers Care Geometry Tutor Name Role Phone Unavailable Primary Care Provider Unavailabl e Surgical History Surgery Date Site/Laterality Comments SECTION PROCEDURE: [place] DELIVERY ONLY TONSILLECTOMY ADENOIDECTOMY, BILATERAL MYRINGOTOMY AND TUBES 1999 PROCEDURE: [place] TONSILLECTOMY & ADENOIDECTOMY <AGE 10; COMMENT: [facility] Medical History Medical History Date Comments [...]
[2024-06-12 13:15] LABS: CT PCR NOT DETECTED (Not Detect.); NG PCR NOT DETECTED (Not Detect.)
== END 2024-06-12 09:50 | disposition home or self-care (01) ==
LOC: HO.LAB 09:49
PROVIDERS: PCP Internal Medicine; Visit Provider Obstetrics & Gynecology
DX: N93.9 Abnormal uterine and vaginal bleeding, unspecified (principal); Z11.3 Encounter for screening for infections with a predominantly sexual mode of transmission
CPT/HCPCS: 84443; 84702; 85027; 87491; 87591

== ENCOUNTER 2024-06-12 10:24 | Outpatient (REF) | payer OTHER, SELFPAY ==
[2024-06-15 13:56] LABS: HPV Genotype 16 Negative (Negative); HPV Genotype 18 Negative (Negative); HPV High Risk Positive (Negative)
== END 2024-06-12 10:25 | disposition home or self-care (01) ==
LOC: HO.LNP 10:24
PROVIDERS: Visit Provider Obstetrics & Gynecology
DX: R87.610 Atypical squamous cells of undetermined significance on cytologic smear of cervix (ASC-US) (principal); R87.810 Cervical high risk human papillomavirus (HPV) DNA test positive
CPT/HCPCS: 87626; 88175

== ENCOUNTER 2024-07-05 09:07 | Outpatient (REF) | payer OTHER, SELFPAY ==
--- OUTSIDE RECORDS SUMMARY | 2024-07-05 10:02 | XMS_ITS | Clinical Summary ---
Author Organization [address] Address [address] [place] [phone] Phone Care Team Providers Care Field Crop Harvest Worker Name Role Phone Unavailable Primary Care Provider Unavailabl e Surgical History Surgery Date Site/Laterality Comments SECTION PROCEDURE: [place] ONLY TONSILLECTOMY ADENOIDECTOMY, BILATERAL MYRINGOTOMY AND TUBES 1999 PROCEDURE: [place] TONSILLECTOMY & ADENOIDECTOMY <AGE 10; COMMENT: [facility] Medical History Medical History Date Comments Anemia [...]
== END 2024-07-05 09:08 | disposition home or self-care (01) ==
LOC: HO.LNP 09:07
PROVIDERS: PCP Internal Medicine; Visit Provider Obstetrics & Gynecology
DX: R87.612 Low grade squamous intraepithelial lesion on cytologic smear of cervix (LGSIL) (principal)
CPT/HCPCS: 57454; 81025; 88305

== ENCOUNTER 2024-07-05 09:07 | Outpatient (AMB) | payer OTHER, SELFPAY ==
[2024-07-05 09:08] VITALS: BMI 32.8
--- NOTE | 2024-07-05 09:08 | A.OFFVIS_ITS ---
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 Sorting Yard Required: No Information Interpreted: non-clinical & clinical Manager Requirements: Manager Requirements Present (Cheri LUU) Accompanied by: Self / Same As Patient Allergies No Known Allergies Allergy (Verified 07/05/24 09:15) HPI Comments Details: Presenting with abnormal Pap smear showing low-grade MADDIE, HPV high-risk positive, HPV 16/18 negative [facility] Medical History Vitamin D deficiency Persistent headaches Vaginal discharge Anxiety disorder HPV in female Onychomycosis Hammertoes of both feet Obesity (BMI 30-39.9) Bacterial vaginosis Surgical History History of section History of tonsillectomy Family History Father Unknown family medical history Mother No problems noted. Maternal Grandmother Glaucoma Maternal Grandfather CVD (cardiovascular disease) Myocardial infarction Paternal Grandfather Unknown family medical history Paternal Grandmother Unknown family medical history Maternal Aunt Diabetes mellitus Brother No problems noted. Sister No problems noted. Daughter No problems noted. Daughter No problems noted. Maternal Uncle Substance use disorder Maternal Uncle Substance use disorder Maternal Uncle Substance use disorder Social History Housing: Apartment Unable to assess alcohol history related to: Unknown Alcohol intake: never Patient Tobacco Use Status: Never used Tobacco e-Cigarette/Vaping Use: Never Used Substance Use Type: Marijuana Current occupational status: employed Sexual orientation: Straight/Heterosexual Gender identity: Female Cognitive needs: No Hearing needs: No Vision needs: No Female Reproductive History Menstrual Age of Menarche: 9 Review of Systems Const All systems reviewed & are unremarkable except as noted in HPI and below Reports as per HPI and Reports no additional complaints GI Reports no additional complaints Reports no additional complaints Office Procedures Colposcopy Colposcopy: Pre-Procedure Counseling: Before beginning the procedure, I conducted comprehensive counseling with the patient. We thoroughly discussed the procedure itself, including its details, alternatives, and all associated risks. This included but not limited to the following complications such as bleeding, infection, and injury to the vagina, bladder, and vessels, as well as the potential need for transfusion with all its associated risks. Subsequently, the patient sign the consent. Pap smear result: LSIL. Urine test in office = Negative Procedure: During the procedure, the following steps were performed: A speculum was inserted, and acetic acid was applied. Colposcopy was conducted, allowing visualization of the transformation zone. Acetowhite lesions were identified at the 11+ 12+ 1 o'clock position. Cervical biopsies were obtained from the 11+ 12+ 1 o'clock position, followed by an endocervical curettage (ECC). Vaginoscopy of the upper vagina revealed no evidence of aceto-white lesions. Hemostasis was achieved using Monsel solution, and the patient tolerated the procedure well. Post-Procedure Instructions: The patient was advised to promptly contact the office or the after hours answering service or go to the emergency room if experiencing a temperature exceeding 100.4?F, abdominal pain, nausea/vomiting, or bleeding. Additionally, the patient was instructed to abstain from vaginal intercourse and bathtub use. The patient confirmed understanding of these instructions. Discharge Instructions: The patient was instructed to schedule a follow-up appointment in 2 weeks for further evaluation and management. Please note that this note was generated using a voice recognition program, and errors may have occurred during training and documentation specialist. [id number] of cervix including upper vagina with biopsy and ECC Procedure code (CPT) selection complete Results AMB Test Urine AMB Test Urine Negative Last Edit by Cheri Vargas CMA on 09:15 Assessment & Plan Assessment & Plan (1) LGSIL on Pap smear of cervix: Comment: HPV high-risk positive, HPV 16/18 negative Code(s): R87.612 - Low grade squamous intraepithelial lesion on cytologic smear of cervix (LGSIL) Category: Medical Plan: Discussed with the patient the result of her abnormal pap, its significance, risk of progression, persistence, and regression. the false positive/negative rate of a Pap smear as a screening test in detecting cervical cancer and the indication for a diagnostic test -colposcopy, biopsy, endocervical curettage. The patient verbalized understanding and agreed with the plan, all questions answered. Colpo biopsy ECC done, see procedure note Orders: Orders AMB HCG Urine Test Today Z32.02 - Encounter for test, result negative AMB Colposcopy Today R87.612 - Low grade squamous intraepithelial lesion on cytologic smear of cervix (LGSIL) Coding Level of Care Code Procedure Only Diagnoses LGSIL on Pap smear of cervix R87.612 CPT Codes Colposcopy - CPT: 49565-Cinehkzoj of cervix including upper vagina with biopsy and ECC ([id number])
--- OUTSIDE RECORDS SUMMARY | 2024-07-05 09:35 | XMS_ITS | Clinical Summary ---
Author Organization [address] Address [address] [place] [phone] Phone Care Team Providers Care Repairer Controller Tester Name Role Phone Unavailable Primary Care Provider Unavailabl e Surgical History Surgery Date Site/Laterality Comments SECTION PROCEDURE: [place] ONLY TONSILLECTOMY ADENOIDECTOMY, BILATERAL MYRINGOTOMY AND TUBES 1999 PROCEDURE: [place] TONSIL[place]OM[place] & ADENOIDECTOMY <AGE 10; COMMENT: [facility] Medical History Medical History Date Comments Anemia [...]
== END 2024-07-05 09:25 | disposition home or self-care (01) ==
LOC: HO.HWS 09:07
PROVIDERS: PCP Internal Medicine; Visit Provider Obstetrics & Gynecology
DX: R87.612 Low grade squamous intraepithelial lesion on cytologic smear of cervix (LGSIL) (principal); Z32.02 Encounter for pregnancy test, result negative
CPT/HCPCS: 57454

== ENCOUNTER 2024-10-31 14:22 | Outpatient (REF) | payer OTHER, SELFPAY ==
--- NOTE | ~2024-10-31 | US_ITS ---
CLINICAL HISTORY: N93.9 - Abnormal uterine and vaginal bleeding, unspecified Ultrasound of the female pelvis Comparison: US/SR - US PELVIS TRANSABDOMINAL AND TRANSVAGINAL - 03/16/23 11:36 EST Technique: Grayscale ultrasound with assistance of color Doppler. Transabdominal scanning performed for overall anatomy. Transvaginal scanning performed for better anatomic delineation. Findings: Retroverted uterus measures 10.8 x 4.3 x 6.1 cm, homogeneous myometrium, no uterine fibroid is seen. Trilaminar endometrium, measures 11 mm in thickness, no abnormal vascular flow, on the static sonographic images, 4 x 3 x 4 mm avascular hyperechoic solid appearing structure in the endometrium of the left uterine body is demonstrated by the park warden, this is not seen on the submitted cine images through the endometrium. Small nabothian cysts of the cervix. The right ovary is normal in size, 3.2 x 3.4 x 2.1 cm. New complex cyst with 2 mm thick septation and associated vascular flow versus 2 simple cysts closely situated together, measuring 2.1 x 1.6 x 1.9 cm, no mural nodularity. Surrounding ovarian parenchyma demonstrates no abnormal vascular flow. Left ovary is not seen, no left adnexal mass. No free fluid. Impression: 1. Right ovarian septated cyst versus 2 simple cysts closely situated together, if it is septated cyst thin there is abnormal vascular flow associated with the septation, sonographic follow-up in 6-12 weeks is necessary to ensure resolution, if it persists or progresses on follow-up ultrasound, then pelvic MRI without and with IV contrast should be considered for further evaluation. 2. Equivocal 4 mm endometrial polyp, attention on follow-up ultrasound. 3. Nonvisualization of the left ovary. This document has been electronically signed by: Edyta Hayward MD on 10/31/2024 17:12:00
--- OUTSIDE RECORDS SUMMARY | 2024-10-31 16:41 | XMS_ITS | Clinical Summary ---
Author Organization [address] Address [address] [place] [phone] Phone Care Team Providers Care Offset Lithographic Press Setter Name Role Phone Unavailable Primary Care Provider Unavailabl e Surgical History Surgery Date Site/Laterality Comments SECTION PROCEDURE: [place] DELIVERY ONLY TONSILLECTOMY ADENOIDECTOMY, BILATERAL MYRINGOTOMY AND TUBES 1999 PROCEDURE: [place] TONSILLECTOMY & ADENOIDECTOMY <AGE 10; COMMENT: [facility] Medical History Medical History Date Comments [...] Cervical Cancer Screening: P ap Smear 2009 HIV Screening 01/30/2022 Hepatitis C Screening 01/30/2022 Social Influencers of Health Screening 01/30/2022 DTaP,Tdap,and Td Vaccines (2 - Td or Tdap) 07/28/2022 07/28/2012 COVID-19 Vaccine (1 - 2023-2 5 season) 2023 Depression Screening 02/29/2024 Influenza Vaccine (#1) 2024 HPV Vaccines Completed 01/30/2008, 11/01/2007, 08/03/2007 [...] 5 Years) and At-Risk Patients (6 to 49 Years) Aged Out No longer eligible b ased on patient's age to complete this topic RSV Immunization Patients Under 20 months Aged Out No longer eligible b ased on patient's age to complete this topic Varicella Vaccines Aged Out No longer eligible based on patient's age to complete this topic
== END 2024-10-31 14:23 | disposition home or self-care (01) ==
LOC: HO.US 14:22
PROVIDERS: PCP Internal Medicine; Visit Provider Obstetrics & Gynecology
DX: N93.9 Abnormal uterine and vaginal bleeding, unspecified (principal)
CPT/HCPCS: 76830; 76856

== ENCOUNTER → 2024-10-31 14:24 | Outpatient (BNV) | payer OTHER, SELFPAY | PROVIDERS: PCP Internal Medicine; Visit Provider Radiology Diagnostic Radiology | DX: N84.0 Polyp of corpus uteri (principal) | CPT/HCPCS: 76830; 76856 ==

== ENCOUNTER 2024-11-06 09:13 | Outpatient (AMB) | payer OTHER, SELFPAY ==
[2024-11-06 09:34] VITALS: BP 118/70; BMI 32.8
--- NOTE | 2024-11-06 09:34 | MHC.OFFVIS ---
Vital Signs 11/06/24 09:34 Height 5 ft 6 in Weight 203 lb BMI 32.8 BP 118/70 Intake Visit Reasons: EMB/US/Colpo Results Doughnut Dough Mixer Required: No Information Interpreted: non-clinical & clinical Spanish Medical Interpreter: Spanish Medical Interpreter Present (Cheri [facility]) Accompanied by: Self / Same As Patient Allergies No Known Allergies Allergy (Verified 11/06/24 09:43) Is last menstrual period known: Yes Last menstrual period: 12/27/19 Post menopausal: No Patient : No Do you need a note to return to daycare/school/sports/work: Yes (for surgery on tuesday) HPI Comments Details: Presenting for EMB, colpo follow-up and ultrasound follow-up. 10/31/2024 pelvic ultrasound showed the following: Impression: 1. Right ovarian septated cyst versus 2 simple cysts closely situated together, if it is septated cyst thin there is abnormal vascular flow associated with the septation, sonographic follow-up in 6-12 weeks is necessary to ensure resolution, if it persists or progresses on follow-up ultrasound, then pelvic MRI without and with IV contrast should be considered for further evaluation. 2. Equivocal 4 mm endometrial polyp, attention on follow-up ultrasound. 3. Nonvisualization of the left ovary. [facility] Medical History Vitamin D deficiency Persistent headaches Vaginal discharge Anxiety disorder HPV in female Onychomycosis Hammertoes of both feet Obesity (BMI 30-39.9) Bacterial vaginosis Surgical History History of section History of tonsillectomy Family History Father Unknown family medical history Mother No problems noted. Maternal Grandmother Glaucoma Maternal Grandfather CVD (cardiovascular disease) Myocardial infarction Paternal Grandfather Unknown family medical history Paternal Grandmother Unknown family medical history Maternal Aunt Diabetes mellitus Brother No problems noted. Sister No problems noted. Daughter No problems noted. Daughter No problems noted. Maternal Uncle Substance use disorder Maternal Uncle Substance use disorder Maternal Uncle Substance use disorder Social History Housing: Apartment Unable to assess alcohol history related to: Unknown Alcohol intake: never Patient Tobacco Use Status: Never used Tobacco e-Cigarette/Vaping Use: Never Used Substance Use Type: Marijuana Current occupational status: employed Sexual orientation: Straight/Heterosexual Gender identity: Female Cognitive needs: No Hearing needs: No Vision needs: No Female Reproductive History Menstrual Age of Menarche: 9 Date of last menstrual period: 12/27/19 Total pregnancies: 2 Full term: 2 Review of Systems Card Reports as per HPI and Reports no additional complaints Resp Reports as per HPI and Reports no additional complaints GI Reports as per HPI and Reports no additional complaints Reports as per HPI Physical Exam Vital Signs: Last Vital Signs BP 118/70 11/06/24 09:34 BMI result Body Mass Index 32.8 Const General: cooperative, healthy appearing and comfortable Resp Effort & Inspection: normal respiratory effort Auscultation: clear to auscultation bilaterally Percussion: percussion normal Cardio Palpation: normal PMI Rate: regular rate Rhythm: regular rhythm Heart sounds: no murmurs and no rubs Peripheral pulses: Peripheral pulses 2+ throughout GI Inspection: Yes normal to inspection Palpation (GI): Soft to palpation, nontender, no guarding, not rigid and No hepatosplenomegaly present Percussion: Yes normal to percussion Auscultation: normal bowel sounds Rectal Exam - Female: deferred Assessment & Plan Assessment & Plan (1) LGSIL on Pap smear of cervix: Comment: HPV high-risk positive, HPV 16/18 negative Code(s): R87.612 - Low grade squamous intraepithelial lesion on cytologic smear of cervix (LGSIL) Category: Medical Plan: Discussed with the patient the pathology results of the colposcopy biopsies & endocervical curettage . Discussed with the patient the sensitivity specificity, positive and negative predictive value in detecting cervical cancer in addition discussed the regression, persistence and progression rates. Recommended co-testing in 12 months, if cytology and or HPV are abnormal will proceed was colposcopy biopsy and endocervical curettage. Instructions given to the patient to schedule a co test appointment in 1 year. All questions answered the patient verbalized understanding. (2) Complex ovarian cyst: Code(s): N83.299 - Other ovarian cyst, unspecified side Category: Medical Plan: Discussed with the patient the finding on ultrasound possible complex ovarian cyst, differential diagnosis discussed with the patient includes benign, premalignant or malignant possibilities. MRI of the pelvis ordered. Instructions given the patient to schedule a follow-up appointment within 2 weeks (3) Abnormal uterine bleeding: Comment: Possible endometrial polyp by ultrasound Code(s): N93.9 - Abnormal uterine and vaginal bleeding, unspecified Category: Medical Plan: Discussed with the patient the finding on ultrasound with possible endometrial polyp. Recommended to the patient that the next step is an endometrial sampling via hysteroscopy D&C possible polypectomy versus endometrial biopsy to r/o endometrial pathology including hyperplasia or cancer. All the pros and cons risks and benefits of each approach were discussed with the patient, endometrial biopsy being less invasive, office procedure with less sensitivity and inability diagnose a polyp and removal versus hysteroscopy done under anesthesia more invasive more sensitive to endometrial cancer and possibility of diagnosing and endometrial polyp with the possibility of polypectomy. All questions were answered pt verbalized understanding and decided to proceed with hysteroscopy D&C possible polypectomy/myomectomy. Discussed with the patient the procedure , all benefits and risks including but not limited to inability to complete the procedure , insufficient endometrial tissue for a complete evaluation of the endometrial cavity , bleeding, infection, possible need for blood transfusion with all its risk ( HIV,syphilis, Hepatitis, anaphylaxis shock, others..), injury to bladder, rectum, possible need for laparoscopy/laparotomy or hysterectomy. The patient verbalized understanding and signed the consent. Instructions given the patient to stay NPO after midnight the day prior to the procedure and to take only the specific medication (s) discussed the morning of the surgical procedure and to schedule a 2 week postoperative appointment Orders: Orders MR pelvis wo/w con Today N83.299 - Other ovarian cyst, unspecified side Medications: Discontinued progesterone micronized (Prometrium) Take the pill 1 tablet a day cyclically every month from day 15-24 day 1 being the 1st day of next menstrual cycle Discontinued Reason: Patient no longer taking 200 mg PO BEDTIME 10 days 30 caps 0RF Coding Level of Care Code Est Pt Level 3 (94052) Diagnoses LGSIL on Pap smear of cervix R87.612 Complex ovarian cyst N83.299 Abnormal uterine bleeding N93.9
--- OUTSIDE RECORDS SUMMARY | 2024-11-06 10:40 | XMS_ITS | Clinical Summary ---
Author Organization [address] Address [address] [place] [id number] Phone Care Team Providers Care Solar Power Installer Name Role Phone Unavailable Primary Care Provider Unavailabl e Surgical History Surgery Date Site/Laterality Comments SECTION PROCEDURE: [place] DELIVERY ONLY TONSILLECTOMY ADENOIDECTOMY, BILATERAL MYRINGOTOMY AND TUBES 1999 PROCEDURE: [place] TONSILLECTOMY & ADENOIDECTOMY <AGE 10; COMMENT: [facility] Medical History Medical History Date Comments [...] (2 - Td or Tdap) 07/28/2022 07/28/2012 Depression Screening 02/29/2024 COVID-19 Vaccine (1 - 2023-2 5 season) 2024 Influenza Vaccine (#1) 2024 HPV Vaccines Completed [...]
== END 2024-11-06 10:22 | disposition home or self-care (01) ==
LOC: HO.HWS 09:14
PROVIDERS: PCP Internal Medicine; Visit Provider Obstetrics & Gynecology
DX: R87.612 Low grade squamous intraepithelial lesion on cytologic smear of cervix (LGSIL) (principal); N83.299 Other ovarian cyst, unspecified side; N93.9 Abnormal uterine and vaginal bleeding, unspecified
CPT/HCPCS: 99213

== ENCOUNTER 2024-11-14 12:01 | Day surgery (SDC) | payer OTHER, SELFPAY ==
[2024-11-12 08:59] VITALS: BMI 32.8
[2024-11-14] VITALS (7 sets, daily range): BP systolic 103–124; BP diastolic 57–82; PULSE 53–71; RESP 12–16; TEMP 36.1–36.4; O2SAT 97–100
[2024-11-14 12:24] LABS: UPreg QC Valid YES
[2024-11-14] MEDS: Lactated Ringers 1,000 ML 100 ML IVCONT (12:29)
--- NOTE | 2024-11-14 13:11 | HO.ANESPROP2 ---
Documented by User: Adilia Strange NP 11/12/24 15:03 HPI - Anesthesia Eval Consult details Narrative: 34yo F for D&C Hysteroscopy,possible myomectomy,possible polypectomy, PMFSH Active Problems Active Problems: All Active Problems Complex ovarian cyst (Acute) LGSIL on Pap smear of cervix (Acute) Abnormal urogenital discharge (Acute) Vitamin D deficiency (Acute) Arcuate uterus (Acute) Hemorrhagic cyst of ovary (Acute) Cervical atypia (Acute) HSV (herpes simplex virus) infection (Acute) ASCUS with positive high risk HPV cervical (Acute) Abnormal uterine bleeding (Acute) Persistent headaches (Acute) Anxiety disorder (Acute) Hammertoes of both feet (Acute) Past Medical History Medical History Vitamin D deficiency Persistent headaches Vaginal discharge Anxiety disorder HPV in female Onychomycosis Hammertoes of both feet Obesity (BMI 30-39.9) Bacterial vaginosis Family History Family History Father Unknown family medical history Mother No problems noted. Maternal Grandmother Glaucoma Maternal Grandfather CVD (cardiovascular disease) Myocardial infarction Paternal Grandfather Unknown family medical history Paternal Grandmother Unknown family medical history Maternal Aunt Diabetes mellitus Brother No problems noted. Sister No problems noted. Daughter No problems noted. Daughter No problems noted. Maternal Uncle Substance use disorder Maternal Uncle Substance use disorder Maternal Uncle Substance use disorder Surgical History Surgical History History of section History of tonsillectomy Social History Social History Housing: Apartment Unable to assess alcohol history related to: Unknown Alcohol intake: never Patient Tobacco Use Status: Never used Tobacco e-Cigarette/Vaping Use: Never Used Use of substances other than those prescribed or required for medical reasons: Yes Substance Use Type: Marijuana Substance Use Frequency: Weekly Advance Directives: No Advance Directives Information Provided: Yes Current occupational status: employed Sexual orientation: Straight/Heterosexual Gender identity: Female Cognitive needs: No Hearing needs: No Vision needs: No Meds Allergies Allergy/AdvReac Type Severity Reaction Status Date / Time No Known Allergies Allergy Verified 11/06/24 09:43 Home Medications ?Medication ?Instructions ?Recorded ?Confirmed ?Last Taken ?Type fluoxetine 20 mg capsule 20 mg PO DAILY 06/24/23 06/24/23 Unknown History Exam Height,Weight and Vital Signs: Height 5 ft 6 in Weight 92.079 kg Assessment and Plan Assessment Anesthesia Assessment: Chart Reviewed Documented by User: Era Johnson, DO 11/14/24 13:13 PMF Past Medical History Medical History Vitamin D deficiency Persistent headaches Vaginal discharge Anxiety disorder HPV in female Onychomycosis Hammertoes of both feet Obesity (BMI 30-39.9) Bacterial vaginosis Family History Family History Father Unknown family medical history Mother No problems noted. Maternal Grandmother Glaucoma Maternal Grandfather CVD (cardiovascular disease) Myocardial infarction Paternal Grandfather Unknown family medical history Paternal Grandmother Unknown family medical history Maternal Aunt Diabetes mellitus Brother No problems noted. Sister No problems noted. Daughter No problems noted. Daughter No problems noted. Maternal Uncle Substance use disorder Maternal Uncle Substance use disorder Maternal Uncle Substance use disorder Family history of problems with anesthesia: No Surgical History Surgical History History of section History of tonsillectomy History of Problems with Anesthesia: Yes (PONV) Social History Social History Housing: Apartment Unable to assess alcohol history related to: Unknown Alcohol intake: never Patient Tobacco Use Status: Never used Tobacco e-Cigarette/Vaping Use: Never Used Use of substances other than those prescribed or required for medical reasons: Yes Substance Use Type: Marijuana Substance Use Frequency: Weekly Advance Directives: No Advance Directives Information Provided: Yes Current occupational status: employed Sexual orientation: Straight/Heterosexual Gender identity: Female Cognitive needs: No Hearing needs: No Vision needs: No Meds Allergies Allergy/AdvReac Type Severity Reaction Status Date / Time No Known Allergies Allergy Verified 11/06/24 09:43 Home Medications ?Medication ?Instructions ?Recorded ?Confirmed ?Last Taken ?Type fluoxetine 20 mg capsule 20 mg PO DAILY 06/24/23 06/24/23 Unknown History Exam Exam Date and Time: 11/14/24 1310 Height,Weight and Vital Signs: Height 5 ft 6 in Weight 92.079 kg Vital Signs Temperature 97 F 11/14/24 12:28 Pulse Rate 71 11/14/24 12:28 Respiratory Rate 16 11/14/24 12:28 Blood Pressure 124/82 11/14/24 12:28 Pulse Oximetry 97 11/14/24 12:28 Oxygen Delivery Method Room Air 11/14/24 12:28 Temperature 97 F 11/14/24 12:28 Pulse Rate 71 11/14/24 12:28 Respiratory Rate 16 11/14/24 12:28 Blood Pressure 124/82 11/14/24 12:28 Pulse Oximetry 97 11/14/24 12:28 Oxygen Delivery Method Room Air 11/14/24 12:28 Airway Mallampati Class: II TM Dist: >3cm Neck ROM: Full Loose/Missing/Broken Teeth: No (patient denies any loose or broken teeth) Heart: S1S2 Lungs: CTAB Assessment and Plan Assessment Anesthesia Assessment: Anesthesia Plan Discussed and Chart Reviewed Final Anesthetic Review Family History of Problems with Anesthesia: No History of Problems with Anesthesia: Yes (PONV) NPO: Yes ASA Class: II Final Preanesthetic Review: No Changes in Pt Med Stat, Meds/Allgs Chart Reviewed, Consent Obtained/Reviewed and Anes Risks/Benef Reviewed Patient Risk: Low Procedure Risk: Low Anesthetic Plan Anesthetic Plan: GA and Agree w/ Assess. and Plan Disposition: Standard PACU
--- NOTE | 2024-11-14 14:31 | MHC.SHP ---
Pre-Procedural Eval Section A - 24 Hr Update-Section A only Date of Service: 11/14/24 The patient is an INPATIENT: No Changes since office visit: No Cold of Flu in the past 2 weeks, No New Medical Problems, No Changes in Medication and No Patient answered all questions The patient has been examined within 24 hours of the surgical procedure. The History & Physical has been completed within 30 days and I have reviewed it.: Yes Section B - Complete if H&P > 30 days Chief Complaint: Abnormal uterine and vaginal bleeding, Allergies: Allergies Allergy/AdvReac Type Severity Reaction Status Date / Time No Known Allergies Allergy Verified 11/06/24 09:43 Plan Diagnosis/Plan: Unchanged I have reviewed the history and physical and performed a pertinent physical examination on my patient. No changes have occurred unless specified. Time Spent With Patient Time: Total time managing care of this patient today ____ minutes.
--- NOTE | 2024-11-14 14:54 | P.BOP_ITS ---
Brief Operative Note Date of Service: 11/14/24 Pre-op diagnosis: AUB, endometrial polyp by pelvic ultrasound Post-op diagnosis: same Procedure: Hysteroscopy D&C Surgeon: Silver Kinney MD Anesthesia: GLMA Was an Honing Machine Operator Production used for this Procedure?: No Estimated blood loss (mL): 0 Pathology: other (Endometrial Scrapping.) Condition: stable Disposition: PACU
--- NOTE | 2024-11-14 14:55 | P.OP_ITS ---
Operative Note Operative Note Date of Service: 11/14/24 Narrative: Preop Diagnosis: Abnormal uterine bleeding, endometrial polyp by ultrasound Operation: Diagnostic Hysteroscopy, Dilataion & Curettage Post Op Diagnosis: Normal endometrial and endocervical cavity, no evidence of pathology QBL: Minimal Anesthesia: GLMA Surgeon: Silver Kinney MD Toe Lining Closer: None Complication: None Pathology: Endometrial Scrapings Procedure: The patient was put in the dorsal lithotomy position, scrubbed, and draped in the usual manner. A sterile speculum was inserted in the patient's vagina. The anterior lip of the cervix was grasped with a single tooth tenaculum. The cervix was dilated up to 5 mm, then the scope was inserted in the patient's uterus. Inspection revealed normal endocervical & endometrial cavity with no evidence of pathology. The scope was taken out of the uterine cavity , then sharp curetting was carried on with no complications. At the end of the procedure, all instruments were taken out of the patient uterine and vaginal cavity. The single tooth tenaculum was removed and homeostasis was assured using pressure. The patient tolerated the procedure well and was transferred to the PACU in a stable condition.
== END 2024-11-14 16:11 | disposition home or self-care (01) ==
PROVIDERS: Nurse Practitioner; PCP Internal Medicine; Visit Provider Obstetrics & Gynecology
PROC: 0UDB8ZZ Extraction of Endometrium, Via Natural or Artificial Opening Endoscopic (ICD-10-PCS; CPT 58558; principal; 2024-11-14 14:30)
DX: N93.9 Abnormal uterine and vaginal bleeding, unspecified (principal); N83.299 Other ovarian cyst, unspecified side; R87.612 Low grade squamous intraepithelial lesion on cytologic smear of cervix (LGSIL); R51.9 Headache, unspecified; E66.9 Obesity, unspecified; Z68.32 Body mass index [BMI] 32.0-32.9, adult; E55.9 Vitamin D deficiency, unspecified; F41.9 Anxiety disorder, unspecified; Z79.899 Other long term (current) drug therapy
CPT/HCPCS: 58558; 81025; 88305; J1100; J1885; J2003; J2250; J2405; J2704; J3010

== ENCOUNTER → 2024-11-14 12:01 | Outpatient (BNV) | payer OTHER, SELFPAY | PROVIDERS: PCP Internal Medicine; Visit Provider Obstetrics & Gynecology | DX: N93.9 Abnormal uterine and vaginal bleeding, unspecified (principal) | CPT/HCPCS: 58558 ==

== ENCOUNTER 2024-11-28 15:47 | Outpatient (AMB) | payer OTHER, SELFPAY ==
--- NOTE | 2024-11-28 15:51 | MHC.OFFVIS ---
Vital Signs 11/28/24 15:57 Height 5 ft 6 in Weight 203 lb BMI 32.8 Intake Visit Reasons: post op Allergies No Known Allergies Allergy (Verified 11/06/24 09:43) HPI Comments Details: The patient is presenting post hysteroscopy D&C no complaints minimal vaginal bleeding no feverishness chills or abdominal pain. Intraoperative finding: Normal endometrial cavity with no evidence of pathology The pathology showed the following: Endometrium, curettage: Inactive endometrium with patchy metaplastic changes and breakdown; no atypia or hyperplasia identified The following workup was done.: H&H= 13.5/39.7 TSH, hCG, GC and chlamydia were negative. Co testing was done 06/22 showed LGSIL HPV positive, followed by colpo biopsy ECC showed the following: A. Endocervix, curettage: Rare squamous and endocervical glandular epithelium; insufficient for endocervical evaluation. B. Cervix, 1:00, biopsy: Squamous mucosa; negative for dysplasia; no endocervical glandular component present. C. Cervix, 11:00, biopsy: Squamous and endocervical glandular epithelium; negative for dysplasia. D. Cervix, 12:00, biopsy: Squamous mucosa; negative for dysplasia; no endocervical glandular component present. Comment: The atypical/dysplastic cells seen in the patient's previous Pap test ([id number]) are not seen in the current biopsy. Pelvic ultrasound showed the following: Retroverted uterus measures 10.8 x 4.3 x 6.1 cm, homogeneous myometrium, no uterine fibroid is seen. Trilaminar endometrium, measures 11 mm in thickness, no abnormal vascular flow, on the static sonographic images, 4 x 3 x 4 mm avascular hyperechoic solid appearing structure in the endometrium of the left uterine body is demonstrated by the client service supervisor, this is not seen on the submitted cine images through the endometrium. Small nabothian cysts of the cervix. The right ovary is normal in size, 3.2 x 3.4 x 2.1 cm. New complex cyst with 2 mm thick septation and associated vascular flow versus 2 simple cysts closely situated together, measuring 2.1 x 1.6 x 1.9 cm, no mural nodularity. Surrounding ovarian parenchyma demonstrates no abnormal vascular flow. Left ovary is not seen, no left adnexal mass. No free fluid. [facility] Medical History Vitamin D deficiency Persistent headaches Vaginal discharge Anxiety disorder HPV in female Onychomycosis Hammertoes of both feet Obesity (BMI 30-39.9) Bacterial vaginosis Surgical History History of section History of tonsillectomy Family History Father Unknown family medical history Mother No problems noted. Maternal Grandmother Glaucoma Maternal Grandfather CVD (cardiovascular disease) Myocardial infarction Paternal Grandfather Unknown family medical history Paternal Grandmother Unknown family medical history Maternal Aunt Diabetes mellitus Brother No problems noted. Sister No problems noted. Daughter No problems noted. Daughter No problems noted. Maternal Uncle Substance use disorder Maternal Uncle Substance use disorder Maternal Uncle Substance use disorder Social History Housing: Apartment Unable to assess alcohol history related to: Unknown Alcohol intake: never Patient Tobacco Use Status: Never used Tobacco e-Cigarette/Vaping Use: Never Used Substance Use Type: Marijuana Current occupational status: employed Sexual orientation: Straight/Heterosexual Gender identity: Female Cognitive needs: No Hearing needs: No Vision needs: No Female Reproductive History Menstrual Age of Menarche: 9 Review of Systems Const All systems reviewed & are unremarkable except as noted in HPI and below Reports as per HPI and Reports no additional complaints GI Reports no additional complaints Reports no additional complaints Assessment & Plan Assessment & Plan (1) Abnormal uterine bleeding: Comment: Possible endometrial polyp by ultrasound Code(s): N93.9 - Abnormal uterine and vaginal bleeding, unspecified Category: Medical Plan: Discussed with the patient the results of the work up done and options of treatment including Lysteda, control pills, Mirena IUD, endometrial ablation and hysterectomy. All pros, cons, risks and benefits if each option was discussed with the patient and the patient decided to go ahead with Mirena IUD so a more detailed discussion about it was conducted including mechanism of action, risks (uterine perforation, infection, injury to bladder, bowel, displacement, and others) benefits (hypo menorrhea, amenorrhea, ...). GC/CT were taken and the patient was instructed to schedule Mirena IUD insertion on day 1-5 of next cycle . All questions answered, the patient verbalized understanding (2) Complex ovarian cyst: Code(s): N83.299 - Other ovarian cyst, unspecified side Category: Medical Plan: Discussed with the patient the complex ovarian cyst by ultrasound. Discussed with the patient the Ultrasound findings, the main limitation of transvaginal ultrasonography alone as a diagnostic tool to distinguish benign from malignant masses relates to its lack of specificity and low positive predictive value for cancer. The differential diagnosis discussed with the patient includes the following but not limited to: benign and malignant gynecological and non-gynecological causes. MRI of the pelvis scheduled with a follow-up appointment. (3) LGSIL on Pap smear of cervix: Comment: HPV high-risk positive, HPV 16/18 negative Code(s): R87.612 - Low grade squamous intraepithelial lesion on cytologic smear of cervix (LGSIL) Category: Medical Plan: Discussed with the patient the pathology results of the colposcopy biopsies & endocervical curettage . Discussed with the patient the sensitivity specificity, positive and negative predictive value in detecting cervical cancer in addition discussed the regression, persistence and progression rates. Recommended co-testing in 12 months, if cytology and or HPV are abnormal will proceed was colposcopy biopsy and endocervical curettage, if lesions gets worse or stays persistent for 2 years will proceed with loop electric excision procedure. Instructions given to the patient to schedule a co test appointment in 1 year. All questions answered the patient verbalized understanding. Coding Level of Care Code Est Pt Level 3 (71908) Diagnoses Abnormal uterine bleeding N93.9 Complex ovarian cyst N83.299 LGSIL on Pap smear of cervix R87.612
[2024-11-28 15:57] VITALS: BMI 32.8
--- OUTSIDE RECORDS SUMMARY | 2024-11-28 16:26 | XMS_ITS | Clinical Summary ---
Author Organization [address] Address [address] [place] [phone] Phone Care Team Providers Care Cryptologic Support Specialist Name Role Phone Unavailable Primary Care Provider Unavailabl e Surgical History Surgery Date Site/Laterality Comments SECTION PROCEDURE: [place] DELIVERY ONLY TONSILLECTOMY ADENOIDECTOMY, BILATERAL MYRINGOTOMY AND TUBES 1999 PROCEDURE: [place] TONSILLECTOMY & ADENOIDECTOMY <AGE 10; COMMENT: [facility] Medical History Medical History Date Comments [...] 5 season) 2024 Influenza Vaccine (#1) 2024 RSV Immunization Adult Patients (1 - 1-dose 75+ series) 10/13/2063 HPV Vaccines Completed 01/30/2008, 11/01/2007, 08/03/2007 HIB [...]
== END 2024-11-28 16:23 | disposition home or self-care (01) ==
LOC: HO.HWS 15:47
PROVIDERS: PCP Internal Medicine; Visit Provider Obstetrics & Gynecology
DX: N93.9 Abnormal uterine and vaginal bleeding, unspecified (principal); N83.299 Other ovarian cyst, unspecified side; R87.612 Low grade squamous intraepithelial lesion on cytologic smear of cervix (LGSIL)
CPT/HCPCS: 99213

== ENCOUNTER 2024-12-06 08:34 | Outpatient (REF) | payer OTHER, SELFPAY ==
[2024-12-06 14:39] LABS: Appearance Urine Turbid; Glucose Urine UA Negative (Negative); PH 6.0 (5.0-9.0); Specific Gravity - Urine 1.025 (1.005-1.025); UMIC TRIGGER UACC YES
[2024-12-06 14:54] LABS: UACC Culture Trigger YES
[2024-12-06 17:42] LABS: Bacterial Vaginosis PCR NEGATIVE (Negative); Candida Group PCR DETECTED (Not Detect); Candida glab krusei PCR NOT DETECTED (Not Detect); Trichomonas vaginalis PCR NOT DETECTED (Not Detect)
[2024-12-06 18:07] LABS: CT PCR NOT DETECTED (Not Detect.); NG PCR NOT DETECTED (Not Detect.)
== END 2024-12-06 08:35 | disposition home or self-care (01) ==
LOC: HO.LAB 08:34
PROVIDERS: PCP Internal Medicine; Visit Provider Nurse Practitioner Family
DX: N76.0 Acute vaginitis (principal); Z20.2 Contact with and (suspected) exposure to infections with a predominantly sexual mode of transmission; Z79.2 Long term (current) use of antibiotics
CPT/HCPCS: 81001; 81003; 81515; 87086; 87491; 87591

== ENCOUNTER 2024-12-06 08:34 | Outpatient (AMB) | payer OTHER, SELFPAY ==
[2024-12-06 08:57] VITALS: BP 120/72; PULSE 82; TEMP 36.7; O2SAT 98; BMI 32.8
--- NOTE | 2024-12-06 08:57 | AM.OFFWIN_ITS ---
Intake Vital Signs 12/06/24 08:57 Height 5 ft 6 in Weight 203 lb BMI 32.8 BP 120/72 Blood Pressure Location Lt brachial Position Sitting Pulse 82 Pulse Source Pulse Oximeter Temp 98.0 F Temp Source Oral Pulse Oximetry (%) 98 Intake Visit Reasons: EP-pelvic pain Patient Tobacco Use Status: Never used Tobacco Allergies No Known Allergies Allergy (Verified 12/06/24 08:57) Medication List - Last Reconciled 12/06/24 by Evi Ortega NP fluconazole 150 mg PO Q3D 3 days metronidazole 500 mg PO BID 7 days Do you need a note to return to daycare/school/sports/work: No HPI HPI Comments History of Present Illness Details 34 y/o Female Patient who presents to [facility] with c/o Vaginal discharge and discomfort for days. She describes the discharge as white and foul odor. She recently had a Vaginal procedure ~ 3 weeks (Hysteroscopy D&C with Normal endometrial cavity with no evidence of pathology). She does have h/o Abnormal uterine bleeding. She is sexually active with one male partner - no condoms. Denies abdominal pain, diarrhea or constipation. Denies Fevers or chills. Denies urinary symptoms. [facility] Medical History (Updated 12/06/24 @ 09:53 by Evi Ortega NP) Vaginitis and vulvovaginitis Vitamin D deficiency Persistent headaches Vaginal discharge Anxiety disorder HPV in female Onychomycosis Hammertoes of both feet Obesity (BMI 30-39.9) Bacterial vaginosis Surgical History History of section History of tonsillectomy Family History Father Unknown family medical history Mother No problems noted. Maternal Grandmother Glaucoma Maternal Grandfather CVD (cardiovascular disease) Myocardial infarction Paternal Grandfather Unknown family medical history Paternal Grandmother Unknown family medical history Maternal Aunt Diabetes mellitus Brother No problems noted. Sister No problems noted. Daughter No problems noted. Daughter No problems noted. Maternal Uncle Substance use disorder Maternal Uncle Substance use disorder Maternal Uncle Substance use disorder Social History Housing: Apartment Alcohol intake: never Patient Tobacco Use Status: Never used Tobacco e-Cigarette/Vaping Use: Never Used Substance Use Type: Marijuana Current occupational status: employed Sexual orientation: Straight/Heterosexual Gender identity: Female Cognitive needs: No Hearing needs: No Vision needs: No Female Reproductive History Menstrual Age of Menarche: 9 Review of Systems Const All systems reviewed & are unremarkable except as noted in HPI and below Physical Exam Vital Signs: Last Vital Signs Temp 98.0 F 12/06/24 08:57 Pulse 82 12/06/24 08:57 BP 120/72 12/06/24 08:57 Pulse Ox 98 12/06/24 08:57 BMI result Body Mass Index 32.8 Const General: no acute distress Nutritional Appearance: overweight Orientation/consciousness: patient oriented x3 GI Inspection: Yes normal to inspection Palpation (GI): Soft to palpation External Female Exam: erythema Speculum Exam - Vagina: normal palpation, abnormal vaginal discharge white and malodorous and nontender Speculum Exam - Cervix: Cervical os open and nontender Bimanual exam- vagina & uterus: normal palpation and No Cervical tenderness present OB/external & speculum: Cervical os open Neuro General: patient oriented x3, gait normal and moves all extremities Psych Speech and movement: Normal speech and movement present Results AMB Urinalysis, Automated UA Leukoctes 0 Eyad/uL Last Edit by Sriram Quintana CMA on 12/06/24 09:31 UA Nitrite Negative Last Edit by Sriram Quintana CMA on 12/06/24 09:31 UA Urobilinogen 0.2 mg/dL Last Edit by Sriram Quintana CMA on 12/06/24 09 :31 UA Protein 0 mg/dL Last Edit by Sriram Quintana CMA on 12/06/24 09:31 UA pH 6.0 Last Edit by Sriram Quintana CMA on 12/06/24 09:31 UA Blood 10 Chris/uL Last Edit by Sirram Quintana CMA on 12/06/24 09:31 UA Specific Singer 1.020 Last Edit by Sriram Quintana CMA on 12/06/24 09:31 UA Ketone Negative Last Edit by Sriram Quintana CMA on 12/06/24 09:31 UA Bilirubin 0 mg/dL Last Edit by Sriram Quintana CMA on 12/06/24 09:31 UA Glucose 0 mg/dL Last Edit by Sriram Quintana CMA on 12/06/24 09:31 Results Reviewed Results Reviewed: Laboratory Last Values Urine pH (Auto) 6.0 12/06/24 09:30 Specific Singer (Auto) 1.020 12/06/24 09:30 Urine Protein (Auto) 0 mg/dL 12/06/24 09:30 Glucose (UA)(Auto) 0 mg/dL 12/06/24 09:30 Urine Ketones (Auto) Negative 12/06/24 09:30 Urine Blood (Auto) 10 Chris/uL 12/06/24 09:30 Urine Nitrite (Auto) Negative 12/06/24 09:30 Urine Bilirubin (Auto) 0 mg/dL 12/06/24 09:30 Urine Urobilinogen (Auto) 0.2 mg/dL 12/06/24 09:30 Leukocyte Esterase (Auto) 0 Eyad/uL 12/06/24 09:30 Assessment & Plan Assessment & Plan (1) Vaginitis and vulvovaginitis: Code(s): N76.0 - Acute vaginitis Plan: Pelvic Exam consistent with Yeast/BV infections. Will Treat today for both - send vaginal swabs. Ordered CT/NG Urinalysis negative - will still send urine for C&S Orders: Orders CT NG by PCR Vag/Cerv Today N76.0 - Acute vaginitis AMB Urinalysis Automated Today Z13.9 - Encounter for screening, unspecified Bacterial Vaginosis Panel Today N76.0 - Acute vaginitis UA CC w/rflx Micro + Cult Today N76.0 - Acute vaginitis Medications: New fluconazole 150 mg PO Q3D 3 tabs 2RF 3 days N89.8 - Other specified noninflammatory disorders of vagina metronidazole 500 mg PO BID 14 tabs 0RF 7 days N76.0 - Acute vaginitis Coding Level of Care Code Est Pt Level 4 (88299) Diagnoses Vaginitis and vulvovaginitis N76.0 Time Spent (min) 20
== END 2024-12-06 09:40 | disposition home or self-care (01) ==
PROVIDERS: PCP Internal Medicine; Visit Provider Nurse Practitioner Family
DX: N76.0 Acute vaginitis (principal); Z13.9 Encounter for screening, unspecified

== ENCOUNTER 2024-12-18 09:25 | Outpatient (AMB) | payer OTHER, SELFPAY ==
--- NOTE | 2024-12-18 09:34 | A.OFFVIS_ITS ---
Vital Signs 12/18/24 09:36 Height 5 ft 6 in Weight 203 lb BMI 32.8 BP 124/84 Intake Visit Reasons: Mirena insertion President Practicing Urologist: President Practicing Urologist Present (Becky) Allergies No Known Allergies Allergy (Verified 12/18/24 09:34) Is last menstrual period known: Yes Last menstrual period: 12/14/24 HPI Comments Details: Patient is here today for a Mirena IUD insert, history of AUB. Previous counseled with Dr. Kinney for procedure. Has menses today. UPT is negative. [facility] Medical History IUD (intrauterine device) in place Vaginitis and vulvovaginitis Vitamin D deficiency Persistent headaches Vaginal discharge Anxiety disorder HPV in female Onychomycosis Hammertoes of both feet Obesity (BMI 30-39.9) Bacterial vaginosis Surgical History History of section History of tonsillectomy Family History Father Unknown family medical history Mother No problems noted. Maternal Grandmother Glaucoma Maternal Grandfather CVD (cardiovascular disease) Myocardial infarction Paternal Grandfather Unknown family medical history Paternal Grandmother Unknown family medical history Maternal Aunt Diabetes mellitus Brother No problems noted. Sister No problems noted. Daughter No problems noted. Daughter No problems noted. Maternal Uncle Substance use disorder Maternal Uncle Substance use disorder Maternal Uncle Substance use disorder Social History Housing: Apartment Alcohol intake: never Patient Tobacco Use Status: Never used Tobacco e-Cigarette/Vaping Use: Never Used Substance Use Type: Marijuana Current occupational status: employed Sexual orientation: Straight/Heterosexual Gender identity: Female Cognitive needs: No Hearing needs: No Vision needs: No Female Reproductive History Menstrual Age of Menarche: 9 Date of last menstrual period: 12/14/24 Review of Systems Const All systems reviewed & are unremarkable except as noted in HPI and below Physical Exam Vital Signs: Last Vital Signs BP 124/84 12/18/24 09:36 BMI result Body Mass Index 32.8 Const General: cooperative, healthy appearing and no acute distress Orientation/consciousness: patient oriented x3 GI Inspection: Yes normal to inspection Palpation (GI): Soft to palpation and Other GI palpation findings present (Nontender) Rectal Exam - Female: visual inspection normal General: Yes bladder normal to palpation External Female Exam: normal appearance of the urethra Speculum Exam - Vagina: normal appearance of the vagina, normal palpation, normal vaginal discharge and vaginal bleeding Speculum Exam - Cervix: normal appearance of the cervix and normal palpation Bimanual exam- vagina & uterus: normal bimanual exam, normal palpation, uterine size normal, bladder normal to palpation, normal palpation, uterine shape normal and non-tender Bimanual Exam- Adnexa, other: normal adnexae OB/external & speculum: vaginal bleeding Neuro General: patient oriented x3 Office Procedures IUD Insert/Removal Details Details: The patient is here today for a Mirena IUD insertion. She was counseled on the side effects including: menstrual cycle changes, pain, infection, bleeding, or expulsion. Risks of injury to the vagina, cervix, uterus, tubes, ovaries, bowel, bladder, and any adjacent tissue, resulting in nerve damage, scarring, and pain. Risks complications for the procedure that may require other test including ultrasounds, Xray, CT or MRI scan, surgery, anesthesia, blood transfusion. A urine test was completed and was negative. She was consented for the IUD insertion and has signed the consent form. All questions were answered. IUD Insertion: The patient was placed in the dorsal lithotomy position and a sterile speculum was inserted. The procedure was completed under aseptic technique. The cervix and vagina were cleansed with a Betadine solution x 3 swabs. A single toothed tenaculum was applied to the cervix for stabilization, and the uterus was sounded to 9 cm. The device was inserted and released with a gentle motion. Bleeding from the tenaculum sites and the procedure were minimal. The strings were trimmed to 3cm. All of the equipment was removed and the bimanual was normal, no tip was palpable at the cervical os. The patient tolerated the procedure well and left the office in good condition. Post IUD Insertion Care: There may be some post insertion bleeding for several days that is usually light and can turn to a light brown or pink in color. Mild cramping may occur. Nothing in the vagina including: tampons, douching or intimacy for several days. You may take an over the counter mild analgesia like Tylenol or Advil (if no allergies), per the manufacturers recommendations on dosing and frequency. Follow the directions completely. Call the office if any: fever (over 100.4), flu like symptoms, abdominal pain, worsening cramping not resolved with over the counter medications, foul smelling vaginal odor, signs of infected appearing discharge, or heavy bleeding. Use a condom for a back up method if indicated for 7 days. Always use a condom for STI prevention; IUD's are not protective against STD's. Return to the office in 4-6 weeks for IUD recheck. This note is constructed using voice recognition software. While every effort has been made to ensure accuracy, apprenticeship consultant errors may have been included. 82872-LEF Insertion Procedure code (CPT) selection complete Office Meds Mirena 21 mcg/24 hr (up to 8 years) 52 mg intrauterine device Performing Provider: Keeley Hoffman CNM Performing Location: [facility] Administered by: BELL Singleton on 12/18/24 10:02 Dose Route Admin Location Dispensed Lot Number Expiration Date [facility] Glass Block Bender 1 device intrauterine 1 device [id number] 01/27/27 90867-651-34 [facility] Total Dispensed Waste 1 device 0 % Results AMB Test Urine AMB Test Urine Negative Last Edit by BELL Singleton on 12/18/24 09:39 Results Reviewed Results Reviewed: Laboratory Last Values Tst Clinic Negative 12/18/24 09:38 Assessment & Plan Assessment & Plan (1) Abnormal uterine bleeding: Code(s): N93.9 - Abnormal uterine and vaginal bleeding, unspecified Category: Medical Plan Mirena IUD procedure completed. Advised to follow up with Dr. Kinney for MRI results. Schedule IUD check appointment maybe consider to do it at her next visit. Advised to call if there is any right-sided pain or any concerns with the Mirena IUD. The patient expressed understanding and agreement with the plan of care. All of her questions and concerns were addressed to the best of my ability. This note is constructed using voice recognition software. While every effort has been made to ensure accuracy, apprenticeship consultant errors may have been included. Orders: Orders AMB HCG Urine Test Today Z32.02 - Encounter for test, result negative AMB IUD Insertion/Removal - Practice Supplied Today N93.9 - Abnormal uterine and vaginal bleeding, unspecified, Z30.430 - Encounter for insertion of intrauterine contraceptive device Coding Level of Care Code Procedure Only Diagnoses Abnormal uterine bleeding N93.9 CPT Codes Details - CPT: 20630-VTM Insertion ([id number])
[2024-12-18 09:36] VITALS: BP 124/84; BMI 32.8
== END 2024-12-18 10:06 | disposition home or self-care (01) ==
LOC: HO.HWS 09:26
PROVIDERS: PCP Internal Medicine; Visit Provider Advanced Practice Midwife
DX: Z30.430 Encounter for insertion of intrauterine contraceptive device (principal); N93.9 Abnormal uterine and vaginal bleeding, unspecified; Z32.02 Encounter for pregnancy test, result negative
CPT/HCPCS: 58300

== ENCOUNTER → 2024-12-18 09:25 | Outpatient (BNVA) | payer OTHER, SELFPAY | PROVIDERS: PCP Internal Medicine; Visit Provider Advanced Practice Midwife | DX: Z30.40 Encounter for surveillance of contraceptives, unspecified (principal); Z32.02 Encounter for pregnancy test, result negative | CPT/HCPCS: 58300; 81025; J7298 ==

== ENCOUNTER → 2024-12-22 12:49 | Outpatient (BNV) | payer OTHER, SELFPAY | PROVIDERS: PCP Internal Medicine; Visit Provider Radiology Diagnostic Radiology | DX: N83.299 Other ovarian cyst, unspecified side (principal); Z97.5 Presence of (intrauterine) contraceptive device | CPT/HCPCS: 72197 ==

== ENCOUNTER 2024-12-22 12:52 | Outpatient (REF) | payer OTHER, SELFPAY ==
--- NOTE | ~2024-12-22 | MR_ITS ---
EXAMINATION: MR PELVIS WITHOUT THEN WITH IV CONTRAST HISTORY: N83.299 - Other ovarian cyst, unspecified side. TECHNIQUE: Axial T1, fat-suppressed T1, and fat suppressed T2, and sagittal and coronal T2-weighted MR images of the pelvis were obtained. Subsequently, sagittal and axial fat-suppressed T1-weighted images were obtained after the intravenous administration of 8 mL Gadavist. COMPARISON: Correlation is made with a pelvic ultrasound dated 10/31/2024. FINDINGS: The uterus measures approximately 9.7 x 4.5 x 5.5 cm. An IUD is seen in appropriate position in the endometrial canal. The endometrium is not thickened. There is thickening of the junctional zone of the uterus, particularly posteriorly, measuring up to 1.5 cm in thickness, compatible with adenomyosis. There are tiny cystic spaces noted within the endometrium of the fundus. No fibroids are identified. There are nabothian cysts in the cervix. The cervical stroma is preserved. The right ovary measures 3.1 x 2.1 x 2.6 cm and is unremarkable. The left ovary is not visualized. There is trace free fluid in the cul-de-sac. No pelvic lymphadenopathy is identified. The visualized bones demonstrate normal marrow signal intensity. MR/MR pelvis wo/w con IMPRESSION: 1. Findings are consistent with adenomyosis of the uterus, as described. 2. IUD in appropriate position in the endometrial cavity. 3. Unremarkable appearing right ovary. The left ovary is not visualized. Electronically signed by: Lionel Avina MD 12/24/2024 08:10 AM EDT
--- OUTSIDE RECORDS SUMMARY | 2024-12-22 13:01 | XMS_ITS | Clinical Summary ---
Author Organization [address] Address [address] [place] [phone] Phone Care Team Providers Care Parts Data Writer Name Role Phone Unavailable Primary Care Provider Unavailabl e Surgical History Surgery Date Site/Laterality Comments SECTION PROCEDURE: [place] DELIVERY ONLY TONSILLECTOMY ADENOIDECTOMY, BILATERAL MYRINGOTOMY AND TUBES 1999 PROCEDURE: [place] TONSILLECTOMY & ADENOIDECTOMY <AGE 10; COMMENT: [facility] Medical History Medical History Date Comments [...]
== END 2024-12-22 12:53 | disposition home or self-care (01) ==
LOC: HO.MRI 12:52
PROVIDERS: PCP Internal Medicine; Visit Provider Obstetrics & Gynecology
DX: N83.299 Other ovarian cyst, unspecified side (principal)
CPT/HCPCS: 72197; A9585

== ENCOUNTER 2025-01-10 08:24 | Outpatient (AMB) | payer OTHER, SELFPAY ==
--- NOTE | 2025-01-10 08:30 | MHC.OFFVIS ---
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 Mirena IUD inserted recently, the patient is doing well with no complaints vaginal bleeding. Pelvic MRI showed the following: IMPRESSION: 1. Findings are consistent with adenomyosis of the uterus, as described. 2. IUD in appropriate position in the endometrial cavity. 3. Unremarkable appearing right ovary. The left ovary is not visualized. [facility] Medical History IUD (intrauterine device) in place Vaginitis and vulvovaginitis Vitamin D deficiency Persistent headaches Vaginal discharge Anxiety disorder HPV in female Onychomycosis Hammertoes of both feet Obesity (BMI 30-39.9) Bacterial vaginosis Surgical History History of section History of tonsillectomy Family History Father Unknown family medical history Mother No problems noted. Maternal Grandmother Glaucoma Maternal Grandfather CVD (cardiovascular disease) Myocardial infarction Paternal Grandfather Unknown family medical history Paternal Grandmother Unknown family medical history Maternal Aunt Diabetes mellitus Brother No problems noted. Sister No problems noted. Daughter No problems noted. Daughter No problems noted. Maternal Uncle Substance use disorder Maternal Uncle Substance use disorder Maternal Uncle Substance use disorder Social History Housing: Apartment Alcohol intake: never Patient Tobacco Use Status: Never used Tobacco e-Cigarette/Vaping Use: Never Used Substance Use Type: Marijuana Current occupational status: employed Sexual orientation: Straight/Heterosexual Gender identity: Female Cognitive needs: No Hearing needs: No Vision needs: No Female Reproductive History Menstrual Age of Menarche: 9 control method: progestin IUCD Review of Systems Const All systems reviewed & are unremarkable except as noted in HPI and below Physical Exam Vital Signs: Last Vital Signs BP 120/82 01/10/25 08:31 BMI result Body Mass Index 32.8 General: Yes no CVA tenderness External Female Exam: normal external appearance and normal appearance of the urethra Speculum Exam - Vagina: normal appearance of the vagina, normal palpation, no lesions and no masses Speculum Exam - Cervix: normal appearance of the cervix, normal palpation, no lesions, no masses, nontender and Other cervical findings present (IUD string seen) Bimanual exam- vagina & uterus: normal bimanual exam, normal palpation, uterine size normal, normal palpation, uterine shape normal, No Cervical tenderness present and non-tender Bimanual Exam- Adnexa, other: normal adnexae Back/Spine/Pelvis Back: no CVA tenderness Results AMB Test Urine AMB Test Urine Negative Last Edit by Cheri Vargas CMA on 01/10/25 08:39 Results Reviewed Results Reviewed: Laboratory Last Values Tst Clinic Negative 01/10/25 08:38 Assessment & Plan Assessment & Plan (1) IUD check up: Code(s): Z30.431 - Encounter for routine checking of intrauterine contraceptive device Category: Medical Plan: UPT done in the office was negative. Discussed with the patient the finding on physical exam, IUD string in place, the patient was reassured. Instructions given to patient to call in case of temperature above 100.4, severe cramping/pelvic pain, abnormal discharge or abnormal uterine bleeding or if she misses her menstrual cycle. Otherwise follow-up at her annual exam appointment. All questions answered, the patient verbalized understanding. (2) Complex ovarian cyst: Code(s): N83.299 - Other ovarian cyst, unspecified side Category: Medical Plan: Discussed with the patient ultrasound findings showing the previously identified right complex cyst on ultrasound has resolved by MRI. The patient was instructed to call if symptoms recur. All questions were answered the patient verbalized understanding. Orders: Orders AMB HCG Urine Test Today Z32.02 - Encounter for test, result negative Coding Level of Care Code Est Pt Level 3 (79002) Diagnoses IUD check up Z30.431 Complex ovarian cyst N83.299
[2025-01-10 08:31] VITALS: BP 120/82; BMI 32.8
--- OUTSIDE RECORDS SUMMARY | 2025-01-10 08:44 | XMS_ITS | Clinical Summary ---
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
== END 2025-01-10 09:08 | disposition home or self-care (01) ==
LOC: HO.HWS 08:24
PROVIDERS: PCP Internal Medicine; Visit Provider Obstetrics & Gynecology
DX: Z30.431 Encounter for routine checking of intrauterine contraceptive device (principal); N83.299 Other ovarian cyst, unspecified side; Z32.02 Encounter for pregnancy test, result negative
CPT/HCPCS: 99213

== ENCOUNTER → 2025-01-10 08:24 | Outpatient (BNVA) | payer OTHER, SELFPAY | PROVIDERS: PCP Internal Medicine; Visit Provider Obstetrics & Gynecology | DX: Z32.02 Encounter for pregnancy test, result negative (principal) | CPT/HCPCS: 81025 ==